=== PATIENT | female | born 1965 | race Two or more races ===

== ENCOUNTER 2019-04-05 13:01 | Emergency (ER) | payer MEDICAID ==
[~2019-04-05] VITALS: Ht 165.1 cm; Wt 86.2 kg
[~2019-04-05 13:01] MED LIST: ASPI81CH43 PO; ATOR20TA50 PO; BACL10TA PO; BUSP10TA90 PO; CLOP75TA28 PO; GABA100C9 PO; HYDR-4683 PO; MET25T PO; OXYB15TA12 PO; PANT40T PO; RISP0.5T12 PO; SERT-135 PO; TRAZ150T79 PO
[2019-04-05] MEDS ORDERED: LORazepam 0.5 MG TAB PO ONE (13:30)
[2019-04-05] MEDS ORDERED: ASPirin 81 mg TAB PO ONE (13:30)
[2019-04-05 13:40] LABS: Basophils # (auto) 0 uL; Basophils % (auto) 0.2 % (0.0-2.0); Eosinophils # (auto) 0.1 uL; Eosinophils % (auto) 1.2 % (0.0-7.0); Hematocrit 41.4 % (36.0-46.0); Lymphocytes # (auto) 1.9 uL; Lymphocytes % (auto) 24.5 % (10.0-50.0); Mean Corpuscular Hemoglobin 31.7 pg (28.0-32.0); Mean Corpuscular Hgb Conc. 33.8 g/dL (32.0-36.0); Mean Corpuscular Volume 93.7 fL (80.0-100.0); Monocytes # (auto) 0.4 uL; Monocytes % (auto) 4.5 % (0.0-12.0); Neutrophils # (auto) 5.5 uL; Neutrophils % (auto) 69.6 % (37.0-80.0); Nucleated Red Blood Cells % 0.1 %; Platelet Count (auto) 177 10^3/uL (140-450); Red Blood Cells 4.41 10^6/uL (4.0-5.20); Red Cell Distribution Width 13.7 % (11.8-14.3); White Blood Cell 7.9 10^3/uL (4.4-10.8)
[2019-04-05 14:04] VITALS: BP 99/62
[2019-04-05 14:06] LABS: Alanine Aminotransferase 52 U/L (13-56); Albumin 3.7 g/dL (3.4-5.0); Anion Gap 7 (5-15); Aspartate Aminotransferase 43 U/L (15-37); Blood Urea Nitrogen 13 mg/dL (7-18); Calcium 8.7 mg/dL (8.5-10.1); Carbon Dioxide 25 mmol/L (21-32); Chloride 109 mmol/L (98-107); Glucose 135 mg/dL (74-106); Potassium 3.9 mmol/L (3.5-5.1); Sodium 141 mmol/L (136-145)
[2019-04-05 14:10] LABS: Alkaline Phosphatase 189 U/L (45-117); BUN/Creatinine Ratio 15.1; Bilirubin, Total 0.5 mg/dL (0.2-1.0); GFR African American 88 mL/min; GFR Non-African American 73 mL/min; Total Protein 7.3 g/dL (6.4-8.2)
[2019-04-05] MEDS ORDERED: KETOROLAC TROMETH 60MG/2ML VIAL IM ONE (14:15)
[2019-04-05] MEDS ORDERED: KETOROLAC TROMETH 15 mg/ml 1ML VL IV ONE (14:15)
== END 2019-04-05 17:19 | disposition home or self-care (01) ==
LOC: ER 13:01
DX: F41.9 Anxiety disorder, unspecified (principal); I11.0 Hypertensive heart disease with heart failure; I50.9 Heart failure, unspecified; I25.2 Old myocardial infarction; F12.10 Cannabis abuse, uncomplicated; Z98.51 Tubal ligation status; Z90.710 Acquired absence of both cervix and uterus; Z98.61 Coronary angioplasty status; Z79.899 Other long term (current) drug therapy
CPT/HCPCS: 36415; 71046; 80053; 84443; 84484; 85025; 93005; 96374; 99284; J1885

== ENCOUNTER 2019-05-02 21:17 | Emergency (ER) | payer MEDICAID ==
[~2019-05-02] VITALS: Ht 165.1 cm; Wt 92.1 kg
[~2019-05-02 21:17] MED LIST changes: -HYDR-4683 PO; +HYDR-4833 PO; -SERT-135 PO; +SERT100T PO
[2019-05-02 22:21] LABS: Urine Bacteria MOD /hpf (None Seen); Urine Blood 3+ /uL (Negative); Urine Mucus FEW (None Seen); Urine Specific Gravity 1.027 (1.001-1.035); Urine WBC 892 /hpf (0 - 5); Urine WBC Clumps PRESENT /hpf (None Seen)
[2019-05-02 22:52] LABS: Basophils # (auto) 0 uL; Basophils % (auto) 0.3 % (0.0-2.0); Eosinophils # (auto) 0.1 uL; Hematocrit 40.9 % (36.0-46.0); Lymphocytes # (auto) 1.4 uL; Lymphocytes % (auto) 14.3 % (10.0-50.0); Mean Corpuscular Hemoglobin 32.1 pg (28.0-32.0); Mean Corpuscular Hgb Conc. 34.2 g/dL (32.0-36.0); Mean Corpuscular Volume 94.1 fL (80.0-100.0); Monocytes # (auto) 0.4 uL; Monocytes % (auto) 4.1 % (0.0-12.0); Neutrophils # (auto) 8.1 uL; Neutrophils % (auto) 80.3 % (37.0-80.0); Platelet Count (auto) 172 10^3/uL (140-450); Red Blood Cells 4.35 10^6/uL (4.0-5.20); Red Cell Distribution Width 13.3 % (11.8-14.3); White Blood Cell 10.1 10^3/uL (4.4-10.8)
[2019-05-02 23:03] LABS: INR 0.97 (0.9-1.15); Partial Thromboplastin Time 25.6 sec (23.64-32.05)
[2019-05-03 01:12] VITALS: BP 103/71
[2019-05-03] MEDS ORDERED: HYDROcodone-ACET 5/325MG TAB PO ONE (02:15)
== END 2019-05-03 02:14 | disposition home or self-care (01) ==
LOC: ER 21:17
DX: N93.9 Abnormal uterine and vaginal bleeding, unspecified (principal); N39.0 Urinary tract infection, site not specified; G89.4 Chronic pain syndrome; M54.9 Dorsalgia, unspecified; I11.0 Hypertensive heart disease with heart failure; I50.9 Heart failure, unspecified; I25.2 Old myocardial infarction; Z98.51 Tubal ligation status; Z90.710 Acquired absence of both cervix and uterus; Z98.61 Coronary angioplasty status; Z79.899 Other long term (current) drug therapy; Z79.01 Long term (current) use of anticoagulants
CPT/HCPCS: 36415; 81001; 85025; 85610; 85730; 86850; 86900; 86901

== ENCOUNTER 2019-10-27 18:32 | Emergency (ER) | payer MEDICAID ==
[~2019-10-27] VITALS: Ht 165.1 cm; Wt 92.5 kg
[2019-10-27 19:41] VITALS: BP 122/98
[2019-10-27] MEDS ORDERED: LORazepam 0.5 MG TAB PO ONE (19:45)
== END 2019-10-27 19:50 | disposition home or self-care (01) ==
LOC: ER 18:32
DX: F41.9 Anxiety disorder, unspecified (principal); F31.9 Bipolar disorder, unspecified; I25.2 Old myocardial infarction; E78.5 Hyperlipidemia, unspecified; I11.0 Hypertensive heart disease with heart failure; I50.9 Heart failure, unspecified; Z76.0 Encounter for issue of repeat prescription; Z98.51 Tubal ligation status; Z90.710 Acquired absence of both cervix and uterus; Z98.61 Coronary angioplasty status

== ENCOUNTER 2020-01-06 17:01 | Emergency (ER) | payer MEDICAID ==
[2020-01-06 17:28] VITALS: BP 118/79
[2020-01-06] MEDS ORDERED: HYDROcodone-ACET 7.5/325MG TAB PO ONE (17:45)
== END 2020-01-06 19:29 | disposition home or self-care (01) ==
LOC: ER 17:01
DX: M13.812 Other specified arthritis, left shoulder (principal); I11.0 Hypertensive heart disease with heart failure; I50.9 Heart failure, unspecified; I25.2 Old myocardial infarction
CPT/HCPCS: 71045; 73030

== ENCOUNTER 2020-03-22 20:42 | Inpatient (IN) | payer MEDICAID ==
[~2020-03-22] VITALS: Ht 165.1 cm; Wt 95.3 kg
[2020-03-22] MEDS ORDERED: ASPirin 81 mg TAB PO ONE (21:00)
[2020-03-22] MEDS ORDERED: MORPHINE SULFATE 4 MG/ML SYR/VIAL IV ONE (21:00)
[2020-03-22] MEDS ORDERED: ONDANSETRON HCL 4 MG/2 ML VIAL IV ONE (21:00)
[2020-03-22 22:06] LABS: Basophils # (auto) 0.1 10 ^3/uL (0-0.2); Basophils % (auto) 1.2 % (0.0-2.0); Eosinophils # (auto) 0 10 ^3/uL (0-0.8); Eosinophils % (auto) 0.6 % (0.0-7.0); Hematocrit 44.5 % (36.0-46.0); Hemoglobin 14.9 g/dL (12.2-16.2); Lymphocytes # (auto) 1.5 10 ^3/uL (0.4-5.4); Lymphocytes % (auto) 19.1 % (10.0-50.0); Mean Corpuscular Hemoglobin 31.2 pg (28.0-32.0); Mean Corpuscular Hgb Conc. 33.5 g/dL (32.0-36.0); Monocytes # (auto) 0.5 10 ^3/uL (0-1.3); Monocytes % (auto) 6.1 % (0.0-12.0); Neutrophils # (auto) 5.7 10 ^3/uL (1.6-8.6); Nucleated Red Blood Cells % 0.1 %; Platelet Count (auto) 238 10^3/uL (140-450); Red Blood Cells 4.78 10^6/uL (4.0-5.20); Red Cell Distribution Width 13.5 % (11.8-14.3); White Blood Cell 7.8 10^3/uL (4.4-10.8)
[2020-03-22 22:22] LABS: Alanine Aminotransferase 31 U/L (13-56); Albumin 3.9 g/dL (3.4-5.0); Anion Gap 7 (5-15); Aspartate Aminotransferase 25 U/L (15-37); BUN/Creatinine Ratio 16.4; Blood Urea Nitrogen 11 mg/dL (7-18); Calcium 8.9 mg/dL (8.5-10.1); Carbon Dioxide 24 mmol/L (21-32); Chloride 109 mmol/L (98-107); GFR African American 118 mL/min; GFR Non-African American 97 mL/min; Glucose 102 mg/dL (74-106); Magnesium 1.9 mg/dL (1.6-2.6); Sodium 140 mmol/L (136-145)
[2020-03-22 22:27] LABS: Alkaline Phosphatase 153 U/L (45-117); Bilirubin, Total 0.5 mg/dL (0.2-1.0); Total Protein 7.6 g/dL (6.4-8.2)
[2020-03-22] MEDS ORDERED: NITROGLYCERIN 0.4 MG SL TAB SL PRN (23:00)
[2020-03-22] MEDS ORDERED: ONDANSETRON HCL 4 MG/2 ML VIAL IV PRN (23:00)
[2020-03-22] MEDS ORDERED: TEMAZEPAM 15 MG CAP PO PRN (23:00)
[2020-03-22] MEDS ORDERED: MORPHINE SULF INJ 2 MG/ML SYRINGE 1ML IV PRN (23:00)
[2020-03-23] VITALS (7 sets, daily range): BP systolic 97–110; BP diastolic 57–72
--- NOTE | 2020-03-23 00:38 | NUR ---
Telemetry admit from [facility] admitted to Telemetry unit after SBAR received. Patient oriented to Neymar Partida primary RN, unit, room, bed, and unit policies regarding patient care and visiting hours. Patient now on continuous telemetry monitoring, tele box # [id number] and telemetry reading on arrival to unit is sinus rhythm. Patient placed on bedside oxygen, weighed by bedscale and encouraged to call if they need something. All questions and concerns addressed, patient verbalized understanding.
--- NOTE | 2020-03-23 05:00 | NUR ---
Patient complaints of back and neck pain at 07/17, paged hospitalist to request for pain medication. Awaiting for call back.
[2020-03-23 06:02] LABS: Basophils # (auto) 0 10 ^3/uL (0-0.2); Basophils % (auto) 0.4 % (0.0-2.0); Eosinophils # (auto) 0.1 10 ^3/uL (0-0.8); Eosinophils % (auto) 1.5 % (0.0-7.0); Hematocrit 41.6 % (36.0-46.0); Hemoglobin 13.8 g/dL (12.2-16.2); Lymphocytes # (auto) 1.9 10 ^3/uL (0.4-5.4); Lymphocytes % (auto) 33.1 % (10.0-50.0); Mean Corpuscular Hemoglobin 31.4 pg (28.0-32.0); Mean Corpuscular Hgb Conc. 33.3 g/dL (32.0-36.0); Mean Corpuscular Volume 94.3 fL (80.0-100.0); Monocytes # (auto) 0.5 10 ^3/uL (0-1.3); Monocytes % (auto) 8.9 % (0.0-12.0); Neutrophils # (auto) 3.2 10 ^3/uL (1.6-8.6); Neutrophils % (auto) 56.1 % (37.0-80.0); Platelet Count (auto) 215 10^3/uL (140-450); Red Blood Cells 4.41 10^6/uL (4.0-5.20); Red Cell Distribution Width 13.6 % (11.8-14.3); White Blood Cell 5.7 10^3/uL (4.4-10.8)
[2020-03-23 06:16] LABS: Anion Gap 5 (5-15); Blood Urea Nitrogen 14 mg/dL (7-18); Calcium 8.7 mg/dL (8.5-10.1); Carbon Dioxide 28 mmol/L (21-32); Chloride 109 mmol/L (98-107); Glucose 95 mg/dL (74-106); Sodium 142 mmol/L (136-145)
[2020-03-23 06:23] LABS: BUN/Creatinine Ratio 20.6; GFR African American 116 mL/min; GFR Non-African American 95 mL/min
--- NOTE | 2020-03-23 06:28 | NUR ---
Hospitalist called back and ordered Tylenol 650mg PO x1, carried out and followed through.
[2020-03-23] MEDS ORDERED: ACETAMINOPHEN 325 MG TAB PO ONE (06:30)
--- NOTE | 2020-03-23 08:00 | NUR ---
Received pt resting in bed, call light with in reach, pt reports headache /, pt was given pain medication by night club manager, pt offered and given a cold towel, will continue to monitor pt.
[2020-03-23] MEDS: METOPROLOL TARTRATE 25 MG TAB PO SCH ×2 (09:44→22:00)
[2020-03-23] MEDS: CLOPIDOGREL BISULFATE 75 MG TAB PO SCH (09:45)
[2020-03-23] MEDS: PANTOPRAZOLE 40 MG TAB PO SCH (09:46)
[2020-03-23] MEDS ORDERED: ASPirin 81 mg TAB PO SCH (10:00)
[2020-03-23] MEDS ORDERED: FAMOTIDINE 20 MG TAB PO SCH (10:00)
--- NOTE | 2020-03-23 12:20 | NUR ---
Paged Dr. Denton regarding pt reporting headache 05/17 and Tylenol is not taking care of the headache, awaiting for call back to request an alternative pain medication.
[2020-03-23] MEDS: ACETAMINOPHEN 325 MG TAB PO PRN (12:35)
--- NOTE | 2020-03-23 12:36 | NUR ---
Pt reports pain, headache 04/16, pt informed that Tylenol is order for her and that Dr. Denton was page to get a new pain medication, awaiting call back. Pt requested for Tylenol to be given now.
--- NOTE | 2020-03-23 13:01 | NUR ---
Paged Dr. Denton regarding pt reporting headache 05/17 and that Tylenol is not taking care of the headache, awaiting for call back to request an alternative pain medication. Pt informed and a cold towel given.
--- NOTE | 2020-03-23 13:07 | NUR ---
Received call back from Dr. Denton, doctor informed that pt is reporting headache 05/17, pt received Tylenol, pt is reporting for Tylenol not working, received orders for Termo 5/325 mg Q6hr prn.
[2020-03-23] MEDS ORDERED: HYDROcodone-ACET 5/325MG TAB PO PRN (13:15)
--- NOTE | 2020-03-23 15:10 | NUR ---
Called and spoke to Dr. Denton regarding restarting pt's home medications as per pt's request, doctor informed that pt is asking for anxiety medication, and that pt's Metoprolol was held at 1000 as schedule due to pt's low HR of 56.
[2020-03-23] MEDS: SERTRALINE HCL 50 MG TAB PO SCH (16:45)
[2020-03-23] MEDS: risperiDONE 1 MG TAB PO SCH (16:45)
[2020-03-23 19:09] LABS: Alcohol, Urine < 3.0 mg/dL (0-10); Amphetamine Screen, Urine NEGATIVE (NEGATIVE); Barbiturate Scree,Urine NEGATIVE (NEGATIVE); Benzodiazephine Screen, Urine POSITIVE (NEGATIVE); Cannabinoid Screen, Urine POSITIVE (NEGATIVE); Cocaine Screen, Urine NEGATIVE (NEGATIVE); Opiate Scree,Urine POSITIVE (NEGATIVE); Phencyclidine Screen, Urine NEGATIVE (NEGATIVE)
--- NOTE | 2020-03-23 19:20 | NUR ---
Opening Shift Note Received report from Hien BONNER. Assumed care of patient, awake and alert. No S/S of distress/SOB or pain. Instructed on POC and to call for assist PRN, will continue to monitor for changes Q1hr and PRN.
[2020-03-23] MEDS: HYDROcodone-ACET 5/325MG TAB PO PRN (20:51)
--- NOTE | 2020-03-23 20:51 | NUR ---
Complains of lower back pain t 6, Denton PO given, continue care.
[2020-03-23] MEDS ORDERED: ATORVASTATIN 20 MG TAB PO SCH (22:00)
[2020-03-23] MEDS: ATORVASTATIN 20 MG TAB PO SCH (22:13)
[2020-03-23] MEDS: traZODone HCL 50 MG TAB PO SCH (22:13)
[2020-03-23] MEDS: busPIRone HCL 10 MG TAB PO SCH (22:14)
--- NOTE | 2020-03-23 22:15 | NUR ---
Pain level at this time is 3/10, continue care.
[2020-03-24 05:00] VITALS: BP 134/81
[2020-03-24] MEDS: busPIRone HCL 10 MG TAB PO SCH ×3 (06:18→21:20)
[2020-03-24] MEDS: HYDROcodone-ACET 5/325MG TAB PO PRN ×3 (06:27→21:21)
--- NOTE | 2020-03-24 07:35 | NUR ---
Opening Note Received report from manager shift RN. Patient is awake, alert and oriented x4. No signs or symptoms of distress noted at this time. Patient denies pain at this time. Patient is on room air, respirations even and unlabored. Reviewed plan of care with patient, patient verbalized understanding. Bed in low and locked position, call light within reach. Will continue to monitor Q1 hour and PRN.
[2020-03-24 08:15] VITALS: BP 108/52
[2020-03-24] MEDS: SERTRALINE HCL 50 MG TAB PO SCH (09:42)
[2020-03-24] MEDS: PANTOPRAZOLE 40 MG TAB PO SCH (09:42)
[2020-03-24] MEDS: CLOPIDOGREL BISULFATE 75 MG TAB PO SCH (09:42)
[2020-03-24] MEDS: ASPirin 81 mg TAB PO SCH (09:42)
[2020-03-24] MEDS: METOPROLOL TARTRATE 25 MG TAB PO SCH ×2 (09:43→21:21)
--- NOTE | 2020-03-24 11:50 | NUR ---
IV Insertion IV access obtained, via clean sterile technique by inserting 22 gauge catheter in left hand after one attempt. IV secured properly. No trauma to site. Patient tolerated procedure well. Will continue to monitor Q1 hour and PRN.
--- NOTE | 2020-03-24 11:55 | NUR ---
IV Removal IV removed with clean sterile technique from right AC, with catheter fully intact. Pressure dressing applied to site. Patient tolerated well. Will continue to monitor.
[2020-03-24 13:16] VITALS: BP 105/62
--- NOTE | 2020-03-24 13:20 | NUR ---
EKG done and placed in patients chart
--- NOTE | 2020-03-24 13:40 | NUR ---
Pain Patient complains of pain 10/10 to lower back and is requesting NORCO. Will medicate per orders. Patient provided with heat packs for comfort. Will continue to monitor Q1 hour and PRN.
--- NOTE | 2020-03-24 14:10 | NUR ---
Pain reassessment Patient states pain in back is now 2/10. Patient resting comfortably in bed. No signs or symptoms of distress noted at this time. Will continue to monitor Q1 hour and PRN.
[2020-03-24 17:08] VITALS: BP 109/63
[2020-03-24] MEDS: risperiDONE 1 MG TAB PO SCH (17:36)
--- NOTE | 2020-03-24 19:03 | NUR ---
Closing Note Report given to varnishing machine operator RN. No signs or symptoms of distress noted at this time.
--- NOTE | 2020-03-24 19:28 | NUR ---
Opening Shift Note Assumed care of patient, awake and alert. No S/S of distress/SOB or chest pain reported at this time, currently on room air, lungs clear, IV patent and benign to left hand. Instructed on POC, including Possible stress test and NPO status after midnight, and to call for assist PRN, pt verbalized understanding, call light within reach, will continue to monitor for changes Q1hr and PRN.
[2020-03-24 20:00] VITALS: BP 104/70
[2020-03-24] MEDS: ATORVASTATIN 20 MG TAB PO SCH (21:20)
[2020-03-24] MEDS: traZODone HCL 50 MG TAB PO SCH (21:21)
[2020-03-24 22:00] VITALS: BP 104/70
[2020-03-25] MEDS: HYDROcodone-ACET 5/325MG TAB PO PRN ×2 (04:06→12:37)
[2020-03-25 05:00] VITALS: BP 122/80
--- NOTE | 2020-03-25 05:30 | NUR ---
IV INSERTION TO RIGHT HAND#20, FLUSHING WELL. PT TOLERATED PROCEDURE WELL. BED IN LOWEST POSITION, CALL LIGHT WITHIN REACH. WILL CONTINUE TO MONITOR.
[2020-03-25] MEDS: busPIRone HCL 10 MG TAB PO SCH ×2 (05:55→14:20)
[2020-03-25] MEDS ORDERED: ADENOSINE 80 MG in GIVE UN-DILUTED 0 ML IV ONE (08:00)
[2020-03-25] MEDS: ACETAMINOPHEN 325 MG TAB PO PRN (08:57)
[2020-03-25 09:00] VITALS: BP 124/91
[2020-03-25] MEDS: METOPROLOL TARTRATE 25 MG TAB PO SCH (10:00)
[2020-03-25] MEDS: CLOPIDOGREL BISULFATE 75 MG TAB PO SCH (12:24)
[2020-03-25] MEDS: PANTOPRAZOLE 40 MG TAB PO SCH (12:24)
[2020-03-25] MEDS: SERTRALINE HCL 50 MG TAB PO SCH (12:24)
[2020-03-25] MEDS: ASPirin 81 mg TAB PO SCH (12:24)
[2020-03-25 13:00] VITALS: BP 106/79
--- NOTE | 2020-03-25 14:20 | NUR ---
SPOKE TO GUADALUPE REGARDING STRESS TEST RESULT. PER LOTTERY CLERK RESULTS NOT YET AVAILABLE.
--- NOTE | 2020-03-25 16:36 | NUR ---
PAGED JASWANT BUTCHER FOR CARDIOLITE RESULTS.
[2020-03-25 17:00] VITALS: BP 113/86
[2020-03-25 17:31] VITALS: BP 113/86
--- NOTE | 2020-03-25 17:55 | NUR ---
CARDIOLOGY CLEARED PT. DISCHARGE INSTRUCTIONS PROVIDED TO PT. PT VERBALIZED UNDERSTANDING FOR CONTINUATION OF HOME MEDICATIONS AND FOLLOW UP APPOINTMENT. EDUCATIONAL MATERIAL PROVIDED TO PT. ALL QUESTIONS AND CONCERNS ADDRESSED. IV CATHETER DC'D LEFT HAND#22, RIGHT HAND#20. TELE BOX REMOVED, AND RETURNED TO TELE DEPT. PT SAFELY ESCORTED OUT OF UNIT.
== END 2020-03-25 18:00 | disposition home or self-care (01) | DRG 198 ==
LOC: ER 20:45 → TELE 20:46 → TELE-WESTW 23:35
PROVIDERS: ADMIT Nurse Practitioner; ATTEND Internal Medicine
DX: R07.89 Other chest pain (principal); I25.110 Atherosclerotic heart disease of native coronary artery with unstable angina pectoris; I50.33 Acute on chronic diastolic (congestive) heart failure; I11.0 Hypertensive heart disease with heart failure; E66.9 Obesity, unspecified; E78.5 Hyperlipidemia, unspecified; F41.9 Anxiety disorder, unspecified; F31.9 Bipolar disorder, unspecified; G89.29 Other chronic pain; F12.90 Cannabis use, unspecified, uncomplicated; M54.5 Low back pain; Z72.0 Tobacco use; I25.2 Old myocardial infarction; Z79.891 Long term (current) use of opiate analgesic; Z90.710 Acquired absence of both cervix and uterus; Z83.3 Family history of diabetes mellitus; Z68.35 Body mass index [BMI] 35.0-35.9, adult; Z95.5 Presence of coronary angioplasty implant and graft; Z98.51 Tubal ligation status; Z71.6 Tobacco abuse counseling; Z83.79 Family history of other diseases of the digestive system; Z82.49 Family history of ischemic heart disease and other diseases of the circulatory system
CPT/HCPCS: 36415; 71045; 78452; 80048; 80053; 80061; 80307; 83735; 83880; 84484; 85025; 85379; 93005; 93017; 93306; 96374; 96375; G0378; J0153; J2405

== ENCOUNTER → 2020-11-11 | Outpatient (CLI) | payer MEDICAID ==
[~2020-11-11] VITALS: Ht 165.1 cm; Wt 92.5 kg
[~2020-11-11] MED LIST changes: +ADENOSINE 78 MG in GIVE UN-DILUTED 0 ML IV ONE; +ADENOSINE 90 MG/30 ML INJ IV ONE; -RISP0.5T12 PO; +RISP0.5T17 PO; -TRAZ150T79 PO; +TRAZ1TAB12 PO
== END | disposition home or self-care (01) ==
LOC: Rad HDHVI 13:28
PROVIDERS: ATTEND Internal Medicine
DX: I25.10 Atherosclerotic heart disease of native coronary artery without angina pectoris (principal); I10 Essential (primary) hypertension; E78.00 Pure hypercholesterolemia, unspecified; R07.89 Other chest pain; I25.2 Old myocardial infarction; Z82.49 Family history of ischemic heart disease and other diseases of the circulatory system
CPT/HCPCS: 78452; 93005; 96374; 96375; A9500; J0153

== ENCOUNTER 2021-05-26 08:10 | Emergency (ER) | payer MEDICAID ==
[~2021-05-26] VITALS: Ht 165.1 cm; Wt 89.8 kg
[~2021-05-26 08:10] MED LIST changes: -ADENOSINE 78 MG in GIVE UN-DILUTED 0 ML IV ONE; -ADENOSINE 90 MG/30 ML INJ IV ONE
[2021-05-26] MEDS ORDERED: MORPHINE SULFATE 4 MG/ML SYR/VIAL IV ONE (08:15)
[2021-05-26] MEDS ORDERED: ASPirin 81 mg TAB PO ONE (08:15)
[2021-05-26] MEDS ORDERED: ONDANSETRON HCL 4 MG/2 ML VIAL IV ONE (08:15)
[2021-05-26 09:08] LABS: Basophils # (auto) 0.1 10 ^3/uL (0-0.2); Eosinophils # (auto) 0.1 10 ^3/uL (0-0.8); Eosinophils % (auto) 0.6 % (0.0-7.0); Hematocrit 45.4 % (36.0-46.0); Hemoglobin 15.5 g/dL (12.2-16.2); Lymphocytes # (auto) 1.9 10 ^3/uL (0.4-5.4); Lymphocytes % (auto) 13.2 % (10.0-50.0); Mean Corpuscular Hemoglobin 31.9 pg (28.0-32.0); Mean Corpuscular Hgb Conc. 34.1 g/dL (32.0-36.0); Mean Corpuscular Volume 93.4 fL (80.0-100.0); Monocytes # (auto) 0.4 10 ^3/uL (0-1.3); Monocytes % (auto) 2.8 % (0.0-12.0); Neutrophils # (auto) 11.8 10 ^3/uL (1.6-8.6); Neutrophils % (auto) 82.4 % (37.0-80.0); Nucleated Red Blood Cells % 0.1 %; Red Blood Cells 4.86 10^6/uL (4.0-5.20); Red Cell Distribution Width 13.4 % (11.8-14.3); White Blood Cell 14.3 10^3/uL (4.4-10.8)
[2021-05-26 09:31] LABS: Albumin 4.2 g/dL (3.4-5.0); Anion Gap 10 (5-15); Blood Urea Nitrogen 13 mg/dL (7-18); Calcium 9.4 mg/dL (8.5-10.1); Carbon Dioxide 21 mmol/L (21-32); Chloride 109 mmol/L (98-107); Glucose 168 mg/dL (74-106); Magnesium 1.8 mg/dL (1.6-2.6); Potassium 3.5 mmol/L (3.5-5.1); Sodium 140 mmol/L (136-145)
[2021-05-26 09:37] LABS: Alanine Aminotransferase 28 U/L (13-56); Alkaline Phosphatase 185 U/L (45-117); Aspartate Aminotransferase 23 U/L (15-37); BUN/Creatinine Ratio 15.1; Bilirubin, Total 0.8 mg/dL (0.2-1.0); GFR African American 88 mL/min; GFR Non-African American 73 mL/min; Total Protein 8.4 g/dL (6.4-8.2)
[2021-05-26 09:46] VITALS: BP 130/99
== END 2021-05-26 14:29 | disposition home or self-care (01) ==
LOC: ER 08:10 → EDBD 08:10 → ER 14:29
DX: R07.89 Other chest pain (principal); D72.829 Elevated white blood cell count, unspecified; I11.0 Hypertensive heart disease with heart failure; I50.9 Heart failure, unspecified; E78.5 Hyperlipidemia, unspecified; I25.2 Old myocardial infarction; Z98.51 Tubal ligation status; Z20.822 Contact with and (suspected) exposure to COVID-19; Z90.710 Acquired absence of both cervix and uterus
CPT/HCPCS: 36415; 71045; 80053; 83735; 83880; 84484; 85025; 85379; 87426; 93005; 96374; 96375; 99285; J2270; J2405

== ENCOUNTER → 2022-03-02 | Outpatient (CLI) | payer MEDICAID ==
[~2022-03-02] VITALS: Ht 165.1 cm; Wt 89.4 kg
[~2022-03-02] MED LIST changes: +ADENOSINE 75 MG in GIVE UN-DILUTED 0 ML IV ONE; +ADENOSINE 90 MG/30 ML INJ IV ONE
== END | disposition home or self-care (01) ==
LOC: Rad HDHVI 13:03
PROVIDERS: ATTEND Internal Medicine
DX: I25.118 Atherosclerotic heart disease of native coronary artery with other forms of angina pectoris (principal); I25.2 Old myocardial infarction; E78.5 Hyperlipidemia, unspecified; I10 Essential (primary) hypertension; R07.9 Chest pain, unspecified; R00.2 Palpitations; R06.02 Shortness of breath; Z01.810 Encounter for preprocedural cardiovascular examination; Z82.49 Family history of ischemic heart disease and other diseases of the circulatory system
CPT/HCPCS: 78452; 93005; 96374; 96375; A9500; J0153

== ENCOUNTER 2022-04-06 10:40 | Inpatient (IN) | payer MEDICAID ==
[~2022-04-06] VITALS: Ht 165.1 cm; Wt 89.0 kg
[~2022-04-06 10:40] MED LIST changes: -ADENOSINE 75 MG in GIVE UN-DILUTED 0 ML IV ONE; -ADENOSINE 90 MG/30 ML INJ IV ONE
[2022-04-06 11:24] LABS: Basophils # (auto) 0.1 10 ^3/uL (0-0.2); Basophils % (auto) 0.9 % (0.0-2.0); Eosinophils # (auto) 0.1 10 ^3/uL (0-0.8); Eosinophils % (auto) 0.7 % (0.0-7.0); Hematocrit 46.3 % (36.0-46.0); Hemoglobin 15.3 g/dL (12.2-16.2); Lymphocytes # (auto) 3.5 10 ^3/uL (0.4-5.4); Lymphocytes % (auto) 29.8 % (10.0-50.0); Mean Corpuscular Hemoglobin 31.1 pg (28.0-32.0); Mean Corpuscular Hgb Conc. 33.1 g/dL (32.0-36.0); Mean Corpuscular Volume 93.8 fL (80.0-100.0); Monocytes # (auto) 0.3 10 ^3/uL (0-1.3); Monocytes % (auto) 2.9 % (0.0-12.0); Neutrophils # (auto) 7.6 10 ^3/uL (1.6-8.6); Neutrophils % (auto) 65.7 % (37.0-80.0); Nucleated Red Blood Cells % 0.1 %; Red Blood Cells 4.94 10^6/uL (4.0-5.20); Red Cell Distribution Width 13.8 % (11.8-14.3); White Blood Cell 11.6 10^3/uL (4.4-10.8)
[2022-04-06 11:39] LABS: Albumin 4.4 g/dL (3.4-5.0); Calcium 9.6 mg/dL (8.5-10.1); Magnesium 1.9 mg/dL (1.6-2.6); Potassium 3.5 mmol/L (3.5-5.1)
[2022-04-06 11:44] LABS: BUN/Creatinine Ratio 13.1; Bilirubin, Total 0.9 mg/dL (0.2-1.0); Total Protein 8.4 g/dL (6.4-8.2)
[2022-04-06 12:03] LABS: INR 1.01 (0.9-1.15); Partial Thromboplastin Time 22.3 sec (23.6-33.0)
[2022-04-06] MEDS ORDERED: cloNIDine HCL 0.1 MG TAB PO ONE (12:45)
[2022-04-06] MEDS ORDERED: LORazepam 2MG/ML-1ML VIAL IV ONE (12:45)
[2022-04-06] MEDS ORDERED: SODIUM CHLORIDE 0.9% 1,000 ML IV ONE (12:45)
[2022-04-06] MEDS ORDERED: CEPH-509 PO (14:38)
[2022-04-06] MEDS ORDERED: LABETALOL HCL 5 MG/ML 4ML SYRINGE IV ONE (14:45)
[2022-04-06 14:56] LABS: Urine Bacteria NONE SEEN /hpf (None Seen); Urine Blood Negative /uL (Negative); Urine Mucus FEW (None Seen); Urine Specific Gravity 1.027 (1.001-1.035); Urine WBC <1 /hpf (0 - 5)
[2022-04-06] MEDS ORDERED: ONDANSETRON HCL 4 MG/2 ML VIAL IV PRN (18:15)
[2022-04-06] MEDS ORDERED: MORPHINE SULFATE INJ 2 MG/ml SYRG IV PRN (18:15)
[2022-04-06] MEDS ORDERED: hydrALAZINE HCL 20 MG/ML VL IV ONE (18:15)
[2022-04-06] MEDS ORDERED: NITROGLYCERIN 0.4 MG SL TAB SL PRN (18:15)
[2022-04-06] MEDS ORDERED: hydrALAZINE HCL 20 MG/ML VL IV PRN (18:15)
[2022-04-06] MEDS ORDERED: ACETAMINOPHEN 325 MG TAB PO PRN (18:15)
[2022-04-06 20:11] LABS: Free T3 3.39 pg/mL (2.3-4.2); Free T4 (Free Thyroxine) 1.3 ng/dL (0.89-1.76)
[2022-04-06] MEDS: HYDROcodone-ACET 5/325MG TAB PO PRN ×2 (20:29→23:29)
[2022-04-06] MEDS: OXYBUTYNIN CHLORIDE 5 MG PO SCH (22:00)
[2022-04-06] MEDS ORDERED: ATORVASTATIN 20 MG TAB PO SCH (22:00)
[2022-04-06] MEDS ORDERED: traZODone HCL 50 MG TAB PO SCH (22:00)
[2022-04-06] MEDS: busPIRone HCL 10 MG TAB PO SCH (22:25)
[2022-04-06 23:16] VITALS: BP 102/74
[2022-04-06] MEDS: METOPROLOL TARTRATE 25 MG TAB PO SCH (23:30)
[2022-04-06] MEDS: BACLOFEN 10 MG TAB PO PRN (23:32)
[2022-04-07] MEDS: METOPROLOL TARTRATE 25 MG TAB PO SCH ×3 (00:30→09:07)
[2022-04-07 05:00] VITALS: BP 105/72
[2022-04-07 06:32] LABS: Basophils # (auto) 0 10 ^3/uL (0-0.2); Basophils % (auto) 0.4 % (0.0-2.0); Eosinophils # (auto) 0 10 ^3/uL (0-0.8); Eosinophils % (auto) 0.3 % (0.0-7.0); Hematocrit 38.8 % (36.0-46.0); Hemoglobin 12.8 g/dL (12.2-16.2); Lymphocytes % (auto) 28.6 % (10.0-50.0); Mean Corpuscular Hemoglobin 30.4 pg (28.0-32.0); Monocytes # (auto) 0.6 10 ^3/uL (0-1.3); Monocytes % (auto) 5.9 % (0.0-12.0); Neutrophils # (auto) 6.9 10 ^3/uL (1.6-8.6); Neutrophils % (auto) 64.8 % (37.0-80.0); Nucleated Red Blood Cells % 0.1 %; Red Blood Cells 4.22 10^6/uL (4.0-5.20); Red Cell Distribution Width 13.4 % (11.8-14.3); White Blood Cell 10.6 10^3/uL (4.4-10.8)
[2022-04-07 06:42] LABS: Albumin 3.4 g/dL (3.4-5.0); Calcium 8.6 mg/dL (8.5-10.1); Potassium 3.3 mmol/L (3.5-5.1)
[2022-04-07 06:44] LABS: BUN/Creatinine Ratio 17.9
[2022-04-07 06:57] LABS: Bilirubin, Total 0.8 mg/dL (0.2-1.0); Total Protein 6.4 g/dL (6.4-8.2)
[2022-04-07] MEDS: busPIRone HCL 10 MG TAB PO SCH ×2 (08:40→15:39)
[2022-04-07 09:00] VITALS: BP 112/73
[2022-04-07] MEDS: OXYBUTYNIN CHLORIDE 5 MG PO SCH (09:08)
[2022-04-07] MEDS ORDERED: ASPirin 81 mg TAB PO SCH (10:00)
[2022-04-07] MEDS ORDERED: GABAPENTIN 100 MG CAP PO SCH (10:00)
[2022-04-07] MEDS ORDERED: PANTOPRAZOLE 40 MG TAB PO SCH (10:00)
[2022-04-07] MEDS ORDERED: SERTRALINE HCL 50 MG TAB PO SCH (10:00)
[2022-04-07] MEDS ORDERED: ENOXAPARIN SOD 40 MG/0.4 ML SYRINGE SC SCH (10:00)
[2022-04-07] MEDS ORDERED: CLOPIDOGREL BISULFATE 75 MG TAB PO SCH (10:00)
[2022-04-07] MEDS: HYDROcodone-ACET 5/325MG TAB PO PRN (10:20)
[2022-04-07] MEDS: BACLOFEN 10 MG TAB PO PRN (10:20)
[2022-04-07] MEDS ORDERED: POTASSIUM CHL 20 Meq TABLET PO ONE (12:00)
[2022-04-07 13:00] VITALS: BP 126/84
[2022-04-07 15:28] VITALS: BP 132/74
[2022-04-07] MEDS ORDERED: risperiDONE 1 MG TAB PO SCH (18:00)
== END 2022-04-07 16:00 | disposition home or self-care (01) | DRG 199 ==
LOC: ER 10:40 → TELE 18:03 → TELE-CENTR 22:59
PROVIDERS: ADMIT Internal Medicine; ATTEND Internal Medicine
DX: I16.0 Hypertensive urgency (principal); E87.2 Acidosis; I50.9 Heart failure, unspecified; E66.9 Obesity, unspecified; I25.10 Atherosclerotic heart disease of native coronary artery without angina pectoris; I11.0 Hypertensive heart disease with heart failure; E78.5 Hyperlipidemia, unspecified; E87.6 Hypokalemia; F41.9 Anxiety disorder, unspecified; F51.04 Psychophysiologic insomnia; N39.0 Urinary tract infection, site not specified; F32.A Depression, unspecified; R73.9 Hyperglycemia, unspecified; R94.6 Abnormal results of thyroid function studies; Z20.822 Contact with and (suspected) exposure to COVID-19; Z68.32 Body mass index [BMI] 32.0-32.9, adult; Z82.49 Family history of ischemic heart disease and other diseases of the circulatory system; Z88.8 Allergy status to other drugs, medicaments and biological substances; Z83.3 Family history of diabetes mellitus; Z90.710 Acquired absence of both cervix and uterus; Z98.61 Coronary angioplasty status; Z98.51 Tubal ligation status
CPT/HCPCS: 36415; 71045; 80053; 81001; 82962; 83735; 84439; 84443; 84481; 84484; 85025; 85610; 85730; 93005; 93306; 96361; 96374; 96375; 97163; 99291; G0378; J3490

== ENCOUNTER 2022-06-05 19:36 | Inpatient (IN) | payer MEDICAID ==
[~2022-06-05] VITALS: Ht 165.1 cm; Wt 88.5 kg
[2022-06-05] MEDS ORDERED: cloNIDine HCL 0.1 MG TAB ONE (21:01)
[2022-06-05] MEDS ORDERED: cloNIDine HCL 0.1 MG TAB PO ONE (21:15)
[2022-06-05 22:12] LABS: Basophils # (auto) 0.1 10 ^3/uL (0-0.2); Basophils % (auto) 0.9 % (0.0-2.0); Eosinophils # (auto) 0 10 ^3/uL (0-0.8); Eosinophils % (auto) 0.1 % (0.0-7.0); Hematocrit 47.5 % (36.0-46.0); Hemoglobin 15.7 g/dL (12.2-16.2); Lymphocytes % (auto) 15.4 % (10.0-50.0); Mean Corpuscular Hemoglobin 30.6 pg (28.0-32.0); Mean Corpuscular Volume 92.9 fL (80.0-100.0); Monocytes # (auto) 0.4 10 ^3/uL (0-1.3); Monocytes % (auto) 3.3 % (0.0-12.0); Neutrophils # (auto) 10.4 10 ^3/uL (1.6-8.6); Neutrophils % (auto) 80.3 % (37.0-80.0); Red Blood Cells 5.12 10^6/uL (4.0-5.20); Red Cell Distribution Width 13.7 % (11.8-14.3)
[2022-06-05] MEDS ORDERED: MORPHINE SULFATE INJ 2 MG/ml SYRG IV ONE (22:15)
[2022-06-05] MEDS ORDERED: LABETALOL HCL 5 MG/ML 4ML SYRINGE IV ONE (22:15)
[2022-06-05] MEDS ORDERED: ONDANSETRON HCL 4 MG/2 ML VIAL IV ONE ×2 (22:15)
[2022-06-05 22:32] LABS: Albumin 4.5 g/dL (3.4-5.0); BUN/Creatinine Ratio 18.2; Calcium 9.9 mg/dL (8.5-10.1); Potassium 4.1 mmol/L (3.5-5.1)
[2022-06-05 22:35] LABS: Bilirubin, Total 1.3 mg/dL (0.2-1.0); Total Protein 8.2 g/dL (6.4-8.2)
[2022-06-06] VITALS (13 sets, daily range): BP systolic 92–128; BP diastolic 56–88
[2022-06-06] LABS: Urine Bacteria FEW /hpf (None Seen); Urine Blood Negative /uL (Negative); Urine Hyaline Cast FEW /lpf (0 - 2); Urine Mucus FEW (None Seen); Urine Specific Gravity 1.042 (1.001-1.035); Urine WBC 2 /hpf (0 - 5)
[2022-06-06] MEDS ORDERED: MORPHINE SULFATE INJ 2 MG/ml SYRG IV PRN (04:00)
[2022-06-06] MEDS ORDERED: NITROGLYCERIN 0.4 MG SL TAB SL PRN (04:00)
[2022-06-06] MEDS ORDERED: ONDANSETRON HCL 4 MG/2 ML VIAL IV PRN (04:00)
[2022-06-06] MEDS ORDERED: TEMAZEPAM 15 MG CAP PO PRN (04:00)
[2022-06-06] MEDS ORDERED: DEXTROSE (50%) 50ML SYRG IV PRN (04:00)
[2022-06-06] MEDS ORDERED: ACETAMINOPHEN 325 MG TAB PO PRN (04:00)
[2022-06-06] MEDS: HYDROcodone-ACET 5/325MG TAB PO PRN ×3 (04:53→19:30)
[2022-06-06] MEDS: InsuLIN REG 1unit/0.01ml Soln (100units/ml) SC SCH ×4 (06:00→22:59)
[2022-06-06] MEDS: ACCU-CHEK COMFORT CURVE STRIP VI SCH ×4 (06:00→22:59)
[2022-06-06] MEDS: ASPirin 81 mg TAB PO SCH (09:56)
[2022-06-06] MEDS: CLOPIDOGREL BISULFATE 75 MG TAB PO SCH (09:57)
[2022-06-06] MEDS: PANTOPRAZOLE 40 MG TAB PO SCH (09:57)
[2022-06-06] MEDS: ENOXAPARIN SOD 40 MG/0.4 ML SYRINGE SC SCH (09:58)
[2022-06-06] MEDS: RANOLAZINE ER 500 MG TAB PO SCH ×2 (09:58→21:12)
[2022-06-06] MEDS: METOPROLOL TARTRATE 25 MG TAB PO SCH ×2 (09:58→21:16)
[2022-06-06 14:00] LABS: Cholesterol 156 mg/dL (< 200); HDL Cholesterol 50 mg/dL (40-59); LDL Cholesterol 103 mg/dL (< 100); Triglycerides 89 mg/dL (< 150)
[2022-06-06] MEDS: LISINOPRIL 20 MG TAB PO SCH (21:15)
[2022-06-06] MEDS ORDERED: ATORVASTATIN 20 MG TAB PO SCH (22:00)
[2022-06-06] MEDS: HYDROcodone-ACET 10/325MG TAB PO PRN (23:01)
[2022-06-07 05:00] VITALS: BP 101/61
[2022-06-07 05:58] LABS: Basophils # (auto) 0.1 10 ^3/uL (0-0.2); Basophils % (auto) 0.6 % (0.0-2.0); Eosinophils # (auto) 0.1 10 ^3/uL (0-0.8); Eosinophils % (auto) 0.8 % (0.0-7.0); Hematocrit 38.3 % (36.0-46.0); Hemoglobin 12.8 g/dL (12.2-16.2); Lymphocytes # (auto) 2.6 10 ^3/uL (0.4-5.4); Mean Corpuscular Hemoglobin 31.7 pg (28.0-32.0); Mean Corpuscular Hgb Conc. 33.5 g/dL (32.0-36.0); Mean Corpuscular Volume 94.7 fL (80.0-100.0); Monocytes # (auto) 0.5 10 ^3/uL (0-1.3); Monocytes % (auto) 5.8 % (0.0-12.0); Neutrophils # (auto) 5.5 10 ^3/uL (1.6-8.6); Neutrophils % (auto) 62.8 % (37.0-80.0); Red Blood Cells 4.04 10^6/uL (4.0-5.20); Red Cell Distribution Width 13.7 % (11.8-14.3); White Blood Cell 8.7 10^3/uL (4.4-10.8)
[2022-06-07] MEDS: InsuLIN REG 1unit/0.01ml Soln (100units/ml) SC SCH ×3 (06:00→16:20)
[2022-06-07] MEDS: ACCU-CHEK COMFORT CURVE STRIP VI SCH ×3 (06:00→16:20)
[2022-06-07 06:21] LABS: Chloride 104 mmol/L (98-107); Potassium 3.9 mmol/L (3.5-5.1); Sodium 138 mmol/L (136-145)
[2022-06-07 06:25] LABS: Alanine Aminotransferase 37 U/L (13-56); Albumin 3.2 g/dL (3.4-5.0); Anion Gap 7 (5-15); Aspartate Aminotransferase 16 U/L (15-37); BUN/Creatinine Ratio 24.7; Blood Urea Nitrogen 22 mg/dL (7-18); Calcium 8.4 mg/dL (8.5-10.1); Carbon Dioxide 27 mmol/L (21-32); GFR African American 84 mL/min; GFR Non-African American 69 mL/min; Glucose 58 mg/dL (74-106)
[2022-06-07 06:28] LABS: Alkaline Phosphatase 134 U/L (45-117); Bilirubin, Total 0.8 mg/dL (0.2-1.0); Total Protein 6.6 g/dL (6.4-8.2)
[2022-06-07 08:20] VITALS: BP 98/61
[2022-06-07 09:00] VITALS: BP 98/61
[2022-06-07] MEDS: CLOPIDOGREL BISULFATE 75 MG TAB PO SCH (09:35)
[2022-06-07] MEDS: ASPirin 81 mg TAB PO SCH (09:35)
[2022-06-07] MEDS: PANTOPRAZOLE 40 MG TAB PO SCH (09:36)
[2022-06-07] MEDS: ENOXAPARIN SOD 40 MG/0.4 ML SYRINGE SC SCH (09:36)
[2022-06-07] MEDS: RANOLAZINE ER 500 MG TAB PO SCH (09:36)
[2022-06-07] MEDS: METOPROLOL TARTRATE 25 MG TAB PO SCH (09:36)
[2022-06-07] MEDS: LISINOPRIL 20 MG TAB PO SCH (09:37)
[2022-06-07] MEDS ORDERED: NIFEdipine ER 30 MG TAB PO SCH (10:00)
[2022-06-07 13:00] VITALS: BP 116/61
[2022-06-07] MEDS: HYDROcodone-ACET 10/325MG TAB PO PRN (14:39)
[2022-06-07] MEDS ORDERED: MET25T PO (15:44)
[2022-06-07] MEDS ORDERED: LISI-716 PO (15:44)
[2022-06-07 16:07] VITALS: BP 116/61
== END 2022-06-07 18:09 | disposition home or self-care (01) | DRG 199 ==
LOC: ER 19:42 → TELE 06-06 04:06 → ICU WEST 06-06 04:38 → TELE-WESTW 06-06 17:26
PROVIDERS: ADMIT Nurse Practitioner; ATTEND Hospitalist
DX: I16.1 Hypertensive emergency (principal); E11.22 Type 2 diabetes mellitus with diabetic chronic kidney disease; I50.42 Chronic combined systolic (congestive) and diastolic (congestive) heart failure; I25.10 Atherosclerotic heart disease of native coronary artery without angina pectoris; I13.0 Hypertensive heart and chronic kidney disease with heart failure and stage 1 through stage 4 chronic kidney disease, or unspecified chronic kidney disease; G89.4 Chronic pain syndrome; Z20.822 Contact with and (suspected) exposure to COVID-19; N18.30 Chronic kidney disease, stage 3 unspecified; E66.9 Obesity, unspecified; E78.5 Hyperlipidemia, unspecified; N39.0 Urinary tract infection, site not specified; Z82.49 Family history of ischemic heart disease and other diseases of the circulatory system; Z83.3 Family history of diabetes mellitus; Z90.710 Acquired absence of both cervix and uterus; Z98.61 Coronary angioplasty status; Z68.32 Body mass index [BMI] 32.0-32.9, adult; Z88.8 Allergy status to other drugs, medicaments and biological substances
CPT/HCPCS: 36415; 70450; 71045; 74176; 80053; 80061; 81001; 82962; 83036; 83880; 84443; 84484; 85025; 87081; 93970; 96374; 96375; G0378; J1815; J2405; J3490

== ENCOUNTER → 2022-07-03 | Outpatient (CLI) | payer MEDICAID ==
[~2022-07-03] MED LIST changes: +ATO40T PO; -BACL10TA PO; +DICL1GEL72 EX; +HYDR-4798 PO; +HYDR50TA69 PO; +LEVO50TA7 PO; +LIDO5DIS21 TOP; +LISI-716 PO; +METH750T22 PO; +SERT50TA19 PO
[2022-07-03 09:34] VITALS: BP 99/71
[2022-07-03 09:54] VITALS: BP 113/71
[2022-07-03 12:46] LABS: Basophils # (auto) 0 10 ^3/uL (0-0.2); Basophils % (auto) 0.4 % (0.0-2.0); Eosinophils # (auto) 0.2 10 ^3/uL (0-0.8); Eosinophils % (auto) 2.1 % (0.0-7.0); Hematocrit 42.8 % (36.0-46.0); Lymphocytes # (auto) 2.4 10 ^3/uL (0.4-5.4); Lymphocytes % (auto) 31.4 % (10.0-50.0); Mean Corpuscular Hemoglobin 30.8 pg (28.0-32.0); Mean Corpuscular Hgb Conc. 32.7 g/dL (32.0-36.0); Mean Corpuscular Volume 94.3 fL (80.0-100.0); Monocytes # (auto) 0.4 10 ^3/uL (0-1.3); Monocytes % (auto) 4.8 % (0.0-12.0); Neutrophils # (auto) 4.7 10 ^3/uL (1.6-8.6); Neutrophils % (auto) 61.3 % (37.0-80.0); Red Blood Cells 4.54 10^6/uL (4.0-5.20); Red Cell Distribution Width 13.6 % (11.8-14.3); White Blood Cell 7.6 10^3/uL (4.4-10.8)
[2022-07-03 13:00] LABS: BUN/Creatinine Ratio 18.6; INR 0.99 (0.9-1.15); Partial Thromboplastin Time 28.1 sec (24.6-33.4)
== END | disposition home or self-care (01) ==
LOC: Rad HDHVI 09:16
PROVIDERS: ATTEND Internal Medicine
DX: Z01.818 Encounter for other preprocedural examination (principal); I25.10 Atherosclerotic heart disease of native coronary artery without angina pectoris; R79.1 Abnormal coagulation profile; I73.9 Peripheral vascular disease, unspecified; I10 Essential (primary) hypertension; R07.9 Chest pain, unspecified
CPT/HCPCS: 36415; 71046; 80048; 85025; 85610; 85730; 93005; G0463

== ENCOUNTER 2022-07-05 07:27 | Day surgery (SDC) | payer MEDICAID ==
[~2022-07-05] VITALS: Ht 165.1 cm; Wt 91.6 kg
[~2022-07-05 07:27] MED LIST changes: -ATOR20TA50 PO; -GABA100C9 PO; -HYDR-4833 PO; -LISI-716 PO; -OXYB15TA12 PO; -PANT40T PO; -RISP0.5T17 PO
[2022-07-05] MEDS ORDERED: ANGIOMAX 250 MG VIAL IV ONE (09:53)
[2022-07-05] MEDS ORDERED: HEPARIN SODIUM (PORCINE) 5000 UNITS/ML 1ML VIAL ONE (09:53)
[2022-07-05] MEDS ORDERED: VERAPAMIL 2.5MG/ML INJ 2ML VIAL IV ONE (09:54)
[2022-07-05] MEDS ORDERED: fentaNYL CITRATE 100 MCG/2 ML VL ONE (09:54)
[2022-07-05] MEDS ORDERED: SODIUM CHL 0.9% 0 ML ONE (09:54)
[2022-07-05] MEDS ORDERED: MIDAZOLAM HCL 2MG/2ML 2ml VIAL (1mg/ml) ONE (09:54)
[2022-07-05] MEDS ORDERED: HYDROmorphone HCL 2 MG/ML VL/or syr ONE ×2 (10:12→10:17)
== END 2022-07-05 12:25 | disposition home or self-care (01) ==
LOC: CATH 07:27
PROVIDERS: ATTEND Internal Medicine
DX: R07.9 Chest pain, unspecified (principal); I25.10 Atherosclerotic heart disease of native coronary artery without angina pectoris; I50.9 Heart failure, unspecified; F41.9 Anxiety disorder, unspecified; F32.A Depression, unspecified; F17.200 Nicotine dependence, unspecified, uncomplicated; Z90.710 Acquired absence of both cervix and uterus; Z95.5 Presence of coronary angioplasty implant and graft; Z98.51 Tubal ligation status; Z82.49 Family history of ischemic heart disease and other diseases of the circulatory system; Z83.79 Family history of other diseases of the digestive system
CPT/HCPCS: 93458; C1769; C1887; C1894; J1170; J1644; J2250; J3010; U0003; 99152; 99153

== ENCOUNTER 2023-04-04 14:11 | Emergency (ER) | payer MEDICAID ==
[~2023-04-04] VITALS: Ht 165.1 cm; Wt 89.5 kg
[~2023-04-04 14:11] MED LIST changes: +METH-1182 PO; -METH750T22 PO; +SERT-206 PO; -SERT50TA19 PO
[2023-04-04 14:43] LABS: Basophils # (auto) 0.1 10 ^3/uL (0-0.2); Basophils % (auto) 1.3 % (0.0-2.0); Eosinophils # (auto) 0 10 ^3/uL (0-0.8); Eosinophils % (auto) 0.6 % (0.0-7.0); Hematocrit 42.4 % (36.0-46.0); Hemoglobin 14.4 g/dL (12.2-16.2); Lymphocytes # (auto) 2.6 10 ^3/uL (0.4-5.4); Lymphocytes % (auto) 32.3 % (10.0-50.0); Mean Corpuscular Hemoglobin 31.8 pg (28.0-32.0); Mean Corpuscular Volume 93.6 fL (80.0-100.0); Monocytes # (auto) 0.3 10 ^3/uL (0-1.3); Monocytes % (auto) 3.4 % (0.0-12.0); Neutrophils # (auto) 4.9 10 ^3/uL (1.6-8.6); Neutrophils % (auto) 62.4 % (37.0-80.0); Nucleated Red Blood Cells % 0.2 %; Red Blood Cells 4.53 10^6/uL (4.0-5.20); Red Cell Distribution Width 13.4 % (11.8-14.3); White Blood Cell 7.9 10^3/uL (4.4-10.8)
[2023-04-04 14:59] LABS: INR 1.02 (0.9-1.15); Partial Thromboplastin Time 27.5 SEC (24.5-34.5)
[2023-04-04 15:28] LABS: Albumin 4.2 g/dL (3.4-5.0); Calcium 8.7 mg/dL (8.5-10.1); Magnesium 2.1 mg/dL (1.6-2.6); Potassium 3.9 mmol/L (3.5-5.1)
[2023-04-04 15:33] LABS: BUN/Creatinine Ratio 11.1 (10.0-20.0); Bilirubin, Total 0.7 mg/dL (0.2-1.0); Total Protein 7.6 g/dL (6.4-8.2)
[2023-04-04 15:58] VITALS: BP 139/96
== END 2023-04-04 16:00 | disposition home or self-care (01) ==
LOC: ER 14:11
DX: R07.89 Other chest pain (principal); R00.2 Palpitations; R51.9 Headache, unspecified; R11.2 Nausea with vomiting, unspecified; R19.7 Diarrhea, unspecified; R20.0 Anesthesia of skin; I11.0 Hypertensive heart disease with heart failure; I50.9 Heart failure, unspecified; E78.5 Hyperlipidemia, unspecified; J45.909 Unspecified asthma, uncomplicated; F32.9 Major depressive disorder, single episode, unspecified; F41.9 Anxiety disorder, unspecified; I25.2 Old myocardial infarction; Z98.51 Tubal ligation status; Z90.710 Acquired absence of both cervix and uterus; Z98.61 Coronary angioplasty status; Z88.8 Allergy status to other drugs, medicaments and biological substances
CPT/HCPCS: 36415; 71045; 80053; 83735; 83880; 84484; 85025; 85610; 85730; 93005

== ENCOUNTER 2023-04-09 20:02 | Emergency (ER) | payer MEDICAID ==
[~2023-04-09] VITALS: Ht 165.1 cm; Wt 93.0 kg
[2023-04-09 21:17] LABS: Basophils # (auto) 0.1 10 ^3/uL (0-0.2); Basophils % (auto) 0.8 % (0.0-2.0); Eosinophils # (auto) 0.3 10 ^3/uL (0-0.8); Eosinophils % (auto) 3.8 % (0.0-7.0); Hematocrit 38.1 % (36.0-46.0); Hemoglobin 12.9 g/dL (12.2-16.2); Lymphocytes # (auto) 2.6 10 ^3/uL (0.4-5.4); Lymphocytes % (auto) 35.4 % (10.0-50.0); Mean Corpuscular Hemoglobin 31.9 pg (28.0-32.0); Mean Corpuscular Hgb Conc. 33.8 g/dL (32.0-36.0); Mean Corpuscular Volume 94.4 fL (80.0-100.0); Monocytes # (auto) 0.4 10 ^3/uL (0-1.3); Monocytes % (auto) 5.9 % (0.0-12.0); Neutrophils % (auto) 54.1 % (37.0-80.0); Nucleated Red Blood Cells % 0.1 %; Red Blood Cells 4.04 10^6/uL (4.0-5.20); Red Cell Distribution Width 13.6 % (11.8-14.3); White Blood Cell 7.4 10^3/uL (4.4-10.8)
[2023-04-09 21:31] LABS: Albumin 3.4 g/dL (3.4-5.0); Calcium 8.9 mg/dL (8.5-10.1); Potassium 3.8 mmol/L (3.5-5.1)
[2023-04-09 21:34] LABS: BUN/Creatinine Ratio 13.5 (10.0-20.0); Bilirubin, Total 0.3 mg/dL (0.2-1.0); Total Protein 7.1 g/dL (6.4-8.2)
[2023-04-09 21:43] LABS: Urine WBC None Seen /hpf (0 - 5)
[2023-04-09 21:53] LABS: Urine Bacteria NONE SEEN /hpf (None Seen); Urine Blood Negative /uL (Negative); Urine Specific Gravity 1.022 (1.001-1.035)
[2023-04-09] MEDS ORDERED: HYDROcodone-ACET 5/325MG TAB PO ONE (23:15)
[2023-04-09] MEDS ORDERED: cefTRIAXone SOD 1,000 MG VL IM ONE (23:15)
[2023-04-09] MEDS ORDERED: DexAMETHasone SOD PHOS 4 MG/1ML SDV INJ IM ONE (23:15)
[2023-04-09] MEDS ORDERED: METR-344 PO (23:33)
[2023-04-09] MEDS ORDERED: HYDR4CRE35 PR (23:33)
[2023-04-09] MEDS ORDERED: HYDR-4902 PO (23:33)
[2023-04-10 00:13] VITALS: BP 137/87
[2023-04-10] MEDS ORDERED: LIDOCAINE 1% HCL (LOCAL ANESTH.) INJ 20ML MDV ONE (00:17)
== END 2023-04-10 00:45 | disposition home or self-care (01) ==
LOC: ER 20:02
DX: N76.0 Acute vaginitis (principal); K62.89 Other specified diseases of anus and rectum; N32.89 Other specified disorders of bladder; F12.10 Cannabis abuse, uncomplicated; I11.0 Hypertensive heart disease with heart failure; I50.9 Heart failure, unspecified; E78.5 Hyperlipidemia, unspecified; Z90.710 Acquired absence of both cervix and uterus; Z98.51 Tubal ligation status; Z88.6 Allergy status to analgesic agent
CPT/HCPCS: 36415; 80053; 81001; 85025; 96372; 99284; J0696; J1100; J2001

== ENCOUNTER 2023-07-16 13:53 | Inpatient (IN) | payer MEDICAID ==
[~2023-07-16] VITALS: Ht 165.1 cm; Wt 97.5 kg
[~2023-07-16 13:53] MED LIST changes: +HYDR4CRE35 PR; +METR-344 PO
[2023-07-16] MEDS ORDERED: MORPHINE SULFATE 4 MG/ML SYR/VIAL IV ONE (16:45)
[2023-07-16] MEDS ORDERED: ONDANSETRON HCL 4 MG/2 ML VIAL IV ONE (16:45)
[2023-07-16] MEDS ORDERED: metroNIDAZOLE 500MG/100ML 100 ML IV ONE (16:45)
[2023-07-16 16:59] LABS: Basophils # (auto) 0 10 ^3/uL (0-0.2); Basophils % (auto) 0.7 % (0.0-2.0); Eosinophils # (auto) 0.1 10 ^3/uL (0-0.8); Eosinophils % (auto) 0.9 % (0.0-7.0); Hemoglobin 13.6 g/dL (12.2-16.2); Lymphocytes # (auto) 2.4 10 ^3/uL (0.4-5.4); Lymphocytes % (auto) 37.4 % (10.0-50.0); Mean Corpuscular Volume 94.2 fL (80.0-100.0); Monocytes # (auto) 0.8 10 ^3/uL (0-1.3); Monocytes % (auto) 11.6 % (0.0-12.0); Neutrophils # (auto) 3.2 10 ^3/uL (1.6-8.6); Neutrophils % (auto) 49.4 % (37.0-80.0); Nucleated Red Blood Cells % 0.1 %; Red Blood Cells 4.25 10^6/uL (4.0-5.20); Red Cell Distribution Width 13.4 % (11.8-14.3); White Blood Cell 6.5 10^3/uL (4.4-10.8)
[2023-07-16 17:21] LABS: Alanine Aminotransferase 24 U/L (7-40); Albumin 4.3 g/dL (3.2-4.8); Alkaline Phosphatase 136 U/L (46-116); Anion Gap 5 (5-15); Aspartate Aminotransferase 23 U/L (13-40); Bilirubin, Total 0.4 mg/dL (0.2-1.0); Calcium 9.2 mg/dL (8.7-10.4); Carbon Dioxide 26 mmol/L (20-30); Chloride 109 mmol/L (98-107); Glucose 94 mg/dL (74-106); Lipase 50 U/L (12-53); Potassium 3.7 mmol/L (3.5-5.1); Sodium 140 mmol/L (136-145); Total Protein 6.9 g/dL (5.7-8.2)
[2023-07-16 17:22] LABS: INR 1.03 (0.9-1.15); Partial Thromboplastin Time 25.4 SEC (24.5-34.5); Prothrombin Time 10.8 sec (9.3-11.8)
[2023-07-16 17:23] LABS: BUN/Creatinine Ratio 6.3 (10.0-20.0); Blood Urea Nitrogen < 5 mg/dL (9-23)
[2023-07-16 17:33] LABS: Urine WBC None Seen /hpf (0 - 5)
[2023-07-16 17:48] LABS: Urine Amorphous Crystal MANY /hpf (None Seen); Urine Bacteria NONE SEEN /hpf (None Seen); Urine Blood Negative /uL (Negative); Urine Clarity CLOUDY (Clear); Urine Color Yellow (Yellow); Urine Mucus FEW (None Seen); Urine Protein, UAD 1+ (Negative); Urine Specific Gravity 1.033 (1.001-1.035); Urine pH 5.5 (5.0-8.0)
[2023-07-16] MEDS ORDERED: ONDANSETRON HCL 4 MG/2 ML VIAL IV PRN (22:15)
[2023-07-16] MEDS ORDERED: cefTRIAXone 1GM/50ML D5W 50 ML IV ONE (22:15)
[2023-07-16] MEDS ORDERED: ACETAMINOPHEN 325 MG TAB PO PRN (22:15)
[2023-07-16] MEDS ORDERED: MORPHINE SULFATE INJ 2 MG/ml SYRG IV PRN (22:15)
[2023-07-16] MEDS ORDERED: HYDROcodone-ACET 5/325MG TAB PO PRN (22:15)
[2023-07-17] VITALS (8 sets, daily range): BP systolic 93–129; BP diastolic 65–84; PULSE 51–68; RESP 16–18; TEMP 97.7–98.5; O2SAT 93–98
[2023-07-17] MEDS: metroNIDAZOLE 500MG/100ML 100 ML IV SCH ×3 (05:36→22:44)
[2023-07-17 06:26] LABS: Basophils # (auto) 0 10 ^3/uL (0-0.2); Basophils % (auto) 0.6 % (0.0-2.0); Eosinophils # (auto) 0.1 10 ^3/uL (0-0.8); Eosinophils % (auto) 1.2 % (0.0-7.0); Hematocrit 35.4 % (36.0-46.0); Hemoglobin 12.1 g/dL (12.2-16.2); Lymphocytes # (auto) 1.8 10 ^3/uL (0.4-5.4); Lymphocytes % (auto) 33.9 % (10.0-50.0); Mean Corpuscular Hemoglobin 32.3 pg (28.0-32.0); Mean Corpuscular Hgb Conc. 34.2 g/dL (32.0-36.0); Mean Corpuscular Volume 94.5 fL (80.0-100.0); Monocytes # (auto) 0.5 10 ^3/uL (0-1.3); Monocytes % (auto) 9.6 % (0.0-12.0); Neutrophils # (auto) 2.9 10 ^3/uL (1.6-8.6); Neutrophils % (auto) 54.7 % (37.0-80.0); Nucleated Red Blood Cells % 0.1 %; Red Blood Cells 3.74 10^6/uL (4.0-5.20); Red Cell Distribution Width 13.3 % (11.8-14.3); White Blood Cell 5.3 10^3/uL (4.4-10.8)
[2023-07-17 06:27] LABS: Alanine Aminotransferase 22 U/L (7-40); Albumin 3.7 g/dL (3.2-4.8); Alkaline Phosphatase 104 U/L (46-116); Anion Gap 8 (5-15); Aspartate Aminotransferase 21 U/L (13-40); Bilirubin, Total 0.5 mg/dL (0.2-1.0); Calcium 8.4 mg/dL (8.5-10.1); Carbon Dioxide 25 mmol/L (20-30); Chloride 106 mmol/L (98-107); Glucose 115 mg/dL (74-106); Potassium 3.3 mmol/L (3.5-5.1); Sodium 139 mmol/L (136-145)
[2023-07-17 06:28] LABS: Total Protein 5.9 g/dL (5.7-8.2)
[2023-07-17 06:30] LABS: BUN/Creatinine Ratio 7.5 (10.0-20.0); Blood Urea Nitrogen < 5 mg/dL (9-23)
[2023-07-17] MEDS: LEVOTHYROXINE SODIUM 50 MCG TAB PO SCH (07:04)
[2023-07-17] MEDS: SERTRALINE HCL 50 MG TAB PO SCH (08:57)
[2023-07-17] MEDS: cefTRIAXone 1GM/50ML D5W 50 ML IV SCH (08:57)
[2023-07-17] MEDS: CLOPIDOGREL BISULFATE 75 MG TAB PO SCH (08:57)
[2023-07-17] MEDS: METOPROLOL TARTRATE 25 MG TAB PO SCH ×2 (08:58→22:43)
[2023-07-17] MEDS: FAMOTIDINE 20 MG TAB PO SCH (08:58)
[2023-07-17] MEDS: HYDROcodone-ACET 10/325MG TAB PO SCH ×2 (14:26→17:49)
[2023-07-17] MEDS: ATORVASTATIN 20 MG TAB PO SCH (22:42)
[2023-07-18] MEDS: HYDROcodone-ACET 10/325MG TAB PO SCH ×5 (04:38→23:06)
[2023-07-18 05:00] VITALS: BP 113/71; PULSE 71; RESP 18; TEMP 98.8; O2SAT 97
[2023-07-18] MEDS: metroNIDAZOLE 500MG/100ML 100 ML IV SCH ×3 (06:03→21:31)
[2023-07-18] MEDS: LEVOTHYROXINE SODIUM 50 MCG TAB PO SCH (06:24)
[2023-07-18 08:00] VITALS: BP 96/60; PULSE 20; PULSE 57; RESP 20; TEMP 98.2; O2SAT 92
[2023-07-18] MEDS: cefTRIAXone 1GM/50ML D5W 50 ML IV SCH (08:36)
[2023-07-18] MEDS: FAMOTIDINE 20 MG TAB PO SCH (08:37)
[2023-07-18] MEDS: CLOPIDOGREL BISULFATE 75 MG TAB PO SCH (08:37)
[2023-07-18] MEDS: SERTRALINE HCL 50 MG TAB PO SCH (08:37)
[2023-07-18 09:00] VITALS: BP 96/60; PULSE 57; RESP 20; TEMP 98.2; O2SAT 97
[2023-07-18] MEDS: METOPROLOL TARTRATE 25 MG TAB PO SCH ×2 (11:30→21:39)
[2023-07-18 13:00] VITALS: BP 137/87; PULSE 58; RESP 18; TEMP 98.1; O2SAT 97
[2023-07-18] MEDS: HYDROCORTISONE 2.5% TOPICAL CREAM 30GM TUBE PR SCH ×2 (14:28→21:32)
[2023-07-18 17:00] VITALS: BP 104/77; PULSE 60; RESP 18; TEMP 98.3; O2SAT 95
[2023-07-18] MEDS: ATORVASTATIN 20 MG TAB PO SCH (21:31)
[2023-07-18 22:00] VITALS: BP 127/69; PULSE 63; RESP 18; TEMP 98.3; O2SAT 96
[2023-07-18] MEDS ORDERED: traZODone HCL 50 MG TAB PO SCH (22:00)
[2023-07-19] MEDS: HYDROCORTISONE 2.5% TOPICAL CREAM 30GM TUBE PR SCH ×2 (06:00→14:00)
[2023-07-19] MEDS: metroNIDAZOLE 500MG/100ML 100 ML IV SCH ×2 (06:00→14:00)
[2023-07-19] MEDS: HYDROcodone-ACET 10/325MG TAB PO SCH ×2 (06:00→12:00)
[2023-07-19] MEDS: LEVOTHYROXINE SODIUM 50 MCG TAB PO SCH (07:00)
[2023-07-19] MEDS: cefTRIAXone 1GM/50ML D5W 50 ML IV SCH (09:00)
[2023-07-19] MEDS: METOPROLOL TARTRATE 25 MG TAB PO SCH (10:00)
[2023-07-19] MEDS: SERTRALINE HCL 50 MG TAB PO SCH (10:00)
[2023-07-19] MEDS: FAMOTIDINE 20 MG TAB PO SCH (10:00)
[2023-07-19] MEDS: CLOPIDOGREL BISULFATE 75 MG TAB PO SCH (10:00)
[2023-07-19] MEDS ORDERED: LEVO500T91 PO (12:17)
[2023-07-19] MEDS ORDERED: MET500T PO (12:17)
[2023-07-19 13:46] VITALS: BP 148/87; PULSE 65; TEMP 36.8
== END 2023-07-19 15:12 | disposition home or self-care (01) | DRG 244 ==
LOC: ER 13:53 → OVERFLOW 22:17 → WEST WING 07-17 03:08
PROVIDERS: ADMIT Nurse Practitioner; ATTEND Family Medicine
DX: K57.93 Diverticulitis of intestine, part unspecified, without perforation or abscess with bleeding (principal); I11.0 Hypertensive heart disease with heart failure; I50.9 Heart failure, unspecified; E03.9 Hypothyroidism, unspecified; R21 Rash and other nonspecific skin eruption; E78.00 Pure hypercholesterolemia, unspecified; F32.A Depression, unspecified; I25.2 Old myocardial infarction; Z82.49 Family history of ischemic heart disease and other diseases of the circulatory system; Z83.3 Family history of diabetes mellitus; Z90.710 Acquired absence of both cervix and uterus
CPT/HCPCS: 36415; 74176; 80053; 81001; 82270; 83690; 85025; 85610; 85730; 86850; 86900; 86901; G0378; J0696; J2405; J3490

== ENCOUNTER 2024-01-28 21:07 | Emergency (ER) | payer MEDICAID ==
[~2024-01-28] VITALS: Ht 165.1 cm; Wt 93.6 kg
[~2024-01-28 21:07] MED LIST changes: -ATO40T PO; +ATOR-507 PO; -HYDR4CRE35 PR; +LEVO500T91 PO; -LEVO50TA7 PO; +MET500T PO; -METR-344 PO
[2024-01-28 22:08] LABS: Basophils # (auto) 0.1 10 ^3/uL (0-0.2); Basophils % (auto) 0.8 % (0.0-2.0); Eosinophils # (auto) 0.1 10 ^3/uL (0-0.8); Eosinophils % (auto) 0.8 % (0.0-7.0); Hematocrit 41.3 % (36.0-46.0); Hemoglobin 13.7 g/dL (12.2-16.2); Lymphocytes # (auto) 3.7 10 ^3/uL (0.4-5.4); Lymphocytes % (auto) 38.8 % (10.0-50.0); Mean Corpuscular Hemoglobin 31.1 pg (28.0-32.0); Mean Corpuscular Hgb Conc. 33.2 g/dL (32.0-36.0); Mean Corpuscular Volume 93.7 fL (80.0-100.0); Monocytes # (auto) 0.6 10 ^3/uL (0-1.3); Monocytes % (auto) 6.2 % (0.0-12.0); Neutrophils % (auto) 53.4 % (37.0-80.0); Red Blood Cells 4.41 10^6/uL (4.0-5.20); White Blood Cell 9.4 10^3/uL (4.4-10.8)
[2024-01-28 22:17] LABS: Chloride 107 mmol/L (98-107); Potassium 3.6 mmol/L (3.5-5.1); Sodium 139 mmol/L (136-145)
[2024-01-28 22:18] LABS: Anion Gap 5 (5-15); Calcium 9.5 mg/dL (8.7-10.4); Carbon Dioxide 27 mmol/L (20-30)
[2024-01-28 22:23] LABS: BUN/Creatinine Ratio 14.8 (10.0-20.0); Blood Urea Nitrogen 12 mg/dL (9-23); Glucose 86 mg/dL (74-106)
[2024-01-29] MEDS ORDERED: MET25T PO (00:26)
[2024-01-29] MEDS: HYDROcodone-ACET 10/325MG TAB PO ONE ×2 (01:47→11:42)
[2024-01-29 11:28] VITALS: BP 149/100; PULSE 82; RESP 16; TEMP 98.3; O2SAT 95
== END 2024-01-29 11:47 | disposition home or self-care (01) ==
LOC: ER 21:07
DX: R51.9 Headache, unspecified (principal); I11.0 Hypertensive heart disease with heart failure; I50.9 Heart failure, unspecified; I25.2 Old myocardial infarction; E78.5 Hyperlipidemia, unspecified; M25.512 Pain in left shoulder; Z90.710 Acquired absence of both cervix and uterus; Z79.82 Long term (current) use of aspirin; Z79.01 Long term (current) use of anticoagulants; Z79.2 Long term (current) use of antibiotics; Z79.899 Other long term (current) drug therapy; Z88.8 Allergy status to other drugs, medicaments and biological substances
CPT/HCPCS: 36415; 70450; 73030; 80048; 84484; 85025; 93005

== ENCOUNTER 2024-02-01 20:16 | Emergency (ER) | payer MEDICAID ==
[~2024-02-01] VITALS: Ht 165.1 cm; Wt 95.0 kg
[2024-02-01 21:18] VITALS: BP 124/69; PULSE 86; RESP 16; TEMP 99
[2024-02-01] MEDS ORDERED: CLON-1004 PO ×2 (23:17→23:18)
[2024-02-01 23:41] VITALS: O2SAT 97
== END 2024-02-01 23:45 | disposition home or self-care (01) ==
LOC: ER 20:16
DX: F32.9 Major depressive disorder, single episode, unspecified (principal); E78.5 Hyperlipidemia, unspecified; I11.0 Hypertensive heart disease with heart failure; I50.9 Heart failure, unspecified; F12.10 Cannabis abuse, uncomplicated; Z98.51 Tubal ligation status; Z90.710 Acquired absence of both cervix and uterus; Z76.0 Encounter for issue of repeat prescription

== ENCOUNTER 2024-05-15 08:31 | Inpatient (IN) | payer MEDICAID ==
[~2024-05-15] VITALS: Ht 165.1 cm; Wt 98.0 kg
[~2024-05-15 08:31] MED LIST changes: +CLON-1004 PO
[2024-05-15] MEDS ORDERED: HALOPERIDOL LACTATE 5 MG/ML INJ VIAL IV ONE (08:45)
[2024-05-15 09:15] VITALS: PULSE 73; RESP 14; O2SAT 100
[2024-05-15] MEDS: ASPirin 81 mg TAB PO ONE (09:39)
[2024-05-15] MEDS: SODIUM CHLORIDE 0.9% 1,000 ML IVB ONE (09:39)
[2024-05-15] MEDS: ONDANSETRON HCL 4 MG/2 ML VIAL IV ONE (09:40)
[2024-05-15] MEDS: HALOPERIDOL LACTATE 5 MG/ML INJ VIAL IM ONE (09:40)
[2024-05-15] MEDS: MORPHINE SULFATE INJ 2 MG/ml SYRG IV ONE (09:41)
[2024-05-15] MEDS: FAMOTIDINE (10MG/ML) 2ML VL IV ONE (09:54)
[2024-05-15 10:14] LABS: Basophils # (auto) 0 10 ^3/uL (0-0.2); Basophils % (auto) 0.4 % (0.0-2.0); Eosinophils # (auto) 0.1 10 ^3/uL (0-0.8); Eosinophils % (auto) 0.6 % (0.0-7.0); Hematocrit 42.8 % (36.0-46.0); Hemoglobin 14.5 g/dL (12.2-16.2); Lymphocytes # (auto) 1.7 10 ^3/uL (0.4-5.4); Lymphocytes % (auto) 18.2 % (10.0-50.0); Mean Corpuscular Hemoglobin 31.8 pg (28.0-32.0); Mean Corpuscular Hgb Conc. 33.8 g/dL (32.0-36.0); Mean Corpuscular Volume 94.1 fL (80.0-100.0); Monocytes # (auto) 0.3 10 ^3/uL (0-1.3); Monocytes % (auto) 2.7 % (0.0-12.0); Neutrophils # (auto) 7.4 10 ^3/uL (1.6-8.6); Neutrophils % (auto) 78.1 % (37.0-80.0); Nucleated Red Blood Cells % 0.1 %; Red Blood Cells 4.55 10^6/uL (4.0-5.20); Red Cell Distribution Width 13.4 % (11.8-14.3); White Blood Cell 9.5 10^3/uL (4.4-10.8)
[2024-05-15 10:35] LABS: Alanine Aminotransferase 41 U/L (7-40); Albumin 4.6 g/dL (3.2-4.8); Alkaline Phosphatase 170 U/L (46-116); Anion Gap 10 (5-15); Aspartate Aminotransferase 34 U/L (13-40); BUN/Creatinine Ratio 12.3 (10.0-20.0); Bilirubin, Total 0.8 mg/dL (0.2-1.0); Blood Urea Nitrogen 9 mg/dL (9-23); Carbon Dioxide 25 mmol/L (20-30); Chloride 106 mmol/L (98-107); Glucose 184 mg/dL (74-106); Magnesium 1.7 mg/dL (1.6-2.6); Potassium 3.8 mmol/L (3.5-5.1); Sodium 141 mmol/L (136-145); Total Protein 7.1 g/dL (5.7-8.2)
[2024-05-15 10:41] LABS: INR 1.01 (0.9-1.15); Prothrombin Time 10.7 sec (9.3-11.8)
[2024-05-15] MEDS: hydrALAZINE HCL 20 MG/ML VL IV ONE ×2 (10:48→14:40)
[2024-05-15 11:32] LABS: COVID19 ANTIGEN SOFIA FIA NEGATIVE (NEGATIVE); Rapid Influenza A Negative (Negative); Rapid Influenza B Negative (Negative)
[2024-05-15] MEDS: ENOXAPARIN SOD 100 MG/1 ML SYRINGE SC ONE (14:56)
[2024-05-15] MEDS ORDERED: NITROGLYCERIN 0.4 MG SL TAB SL PRN (15:15)
[2024-05-15] MEDS ORDERED: ONDANSETRON HCL 4 MG/2 ML VIAL IV PRN (15:15)
[2024-05-15] MEDS ORDERED: MORPHINE SULFATE INJ 2 MG/ml SYRG IV PRN (15:15)
[2024-05-15] MEDS ORDERED: LABETALOL HCL 20 MG/4 ML VL IV PRN (15:15)
[2024-05-15] MEDS ORDERED: hydrALAZINE HCL 20 MG/ML VL IV PRN (15:15)
[2024-05-15] MEDS: LABETALOL HCL 20 MG/4 ML VL IV ONE (15:42)
[2024-05-15] MEDS ORDERED: hydrOXYzine 25 MG TAB or CAP PO PRN (15:45)
[2024-05-15] MEDS: HYDROmorphone HCL 2 MG/ML VL/or syr IV PRN (18:41)
[2024-05-15 20:00] VITALS: PULSE 91; RESP 12; O2SAT 93
[2024-05-15 21:57] VITALS: PULSE 84; RESP 13; O2SAT 96
[2024-05-15] MEDS: METOPROLOL TARTRATE 25 MG TAB PO SCH (23:23)
[2024-05-15] MEDS: SODIUM CHLOR 0.9% PF (SALINE LOCK) 10ML VIAL/SYR IV SCH (23:24)
[2024-05-15] MEDS: HYDROcodone-ACET 5/325MG TAB PO PRN (23:41)
[2024-05-15] MEDS: busPIRone HCL 10 MG TAB PO SCH (23:42)
[2024-05-15] MEDS: traZODone HCL 50 MG TAB PO SCH (23:42)
[2024-05-15] MEDS: ATORVASTATIN 20 MG TAB PO SCH (23:42)
[2024-05-16] VITALS (7 sets, daily range): BP systolic 97–113; BP diastolic 59–87; PULSE 61–86; RESP 17–20; TEMP 97.9–98.5; O2SAT 92–97
[2024-05-16] MEDS ORDERED: PATIENTS OWN MEDICATION (Sertraline Hcl (Zoloft) 1 TAB) PO SCH (10:00)
[2024-05-16] MEDS: CLOPIDOGREL BISULFATE 75 MG TAB PO SCH (10:15)
[2024-05-16] MEDS: ASPirin 81 mg TAB PO SCH (10:15)
[2024-05-16] MEDS: SERTRALINE HCL 50 MG TAB PO SCH (10:15)
[2024-05-16] MEDS: ENOXAPARIN SOD 40 MG/0.4 ML SYRINGE SC SCH (10:18)
[2024-05-16] MEDS ORDERED: MET25T PO (13:10)
[2024-05-17] VITALS (9 sets, daily range): BP systolic 84–162; BP diastolic 49–88; PULSE 53–83; RESP 15–18; TEMP 96.8–98.4; O2SAT 94–98
[2024-05-17 06:06] LABS: Basophils # (auto) 0 10 ^3/uL (0-0.2); Basophils % (auto) 0.4 % (0.0-2.0); Eosinophils # (auto) 0.1 10 ^3/uL (0-0.8); Eosinophils % (auto) 1.1 % (0.0-7.0); Hematocrit 37.4 % (36.0-46.0); Lymphocytes # (auto) 2.3 10 ^3/uL (0.4-5.4); Lymphocytes % (auto) 28.6 % (10.0-50.0); Mean Corpuscular Hemoglobin 32.3 pg (28.0-32.0); Mean Corpuscular Hgb Conc. 34.7 g/dL (32.0-36.0); Mean Corpuscular Volume 93.1 fL (80.0-100.0); Monocytes # (auto) 0.5 10 ^3/uL (0-1.3); Monocytes % (auto) 6.6 % (0.0-12.0); Neutrophils % (auto) 63.3 % (37.0-80.0); Nucleated Red Blood Cells % 0.1 %; Red Blood Cells 4.02 10^6/uL (4.0-5.20)
[2024-05-17 06:23] LABS: Anion Gap 6 (5-15); Carbon Dioxide 30 mmol/L (20-30); Chloride 107 mmol/L (98-107); Potassium 3.4 mmol/L (3.5-5.1); Sodium 143 mmol/L (136-145)
[2024-05-17 06:25] LABS: Calcium 9.2 mg/dL (8.7-10.4)
[2024-05-17 06:29] LABS: BUN/Creatinine Ratio 15.8 (10.0-20.0); Blood Urea Nitrogen 12 mg/dL (9-23); Glucose 79 mg/dL (74-106); Partial Thromboplastin Time 25.7 SEC (24.5-34.5); Prothrombin Time 10.6 sec (9.3-11.8)
[2024-05-17] MEDS: HYDROcodone-ACET 5/325MG TAB PO ONE (12:19)
[2024-05-17] MEDS: METOPROLOL TARTRATE 25 MG TAB PO SCH (12:21)
[2024-05-17] MEDS ORDERED: HYDROcodone-ACET 10/325MG TAB PO SCH (14:00)
[2024-05-17 15:37] LABS: Triglycerides 90 mg/dL (< 150)
[2024-05-17 15:38] LABS: LDL Cholesterol 91 mg/dL (< 100)
[2024-05-17 15:39] LABS: Cholesterol 151 mg/dL (< 200); HDL Cholesterol 45 mg/dL (40-59)
[2024-05-17] MEDS: POTASSIUM CHL 20 Meq TABLET PO ONE (16:45)
[2024-05-17] MEDS: HYDROcodone-ACET 10/325MG TAB PO PRN (16:46)
[2024-05-18] VITALS (8 sets, daily range): BP systolic 125–143; BP diastolic 72–87; PULSE 61–112; RESP 16–20; TEMP 97.5–98.4; O2SAT 94–100
[2024-05-18 07:51] LABS: Chloride 108 mmol/L (98-107); Potassium 3.9 mmol/L (3.5-5.1); Sodium 141 mmol/L (136-145)
[2024-05-18 07:52] LABS: Carbon Dioxide 30 mmol/L (20-30)
[2024-05-18 07:53] LABS: Anion Gap 3 (5-15); Calcium 9.3 mg/dL (8.7-10.4)
[2024-05-18 07:58] LABS: BUN/Creatinine Ratio 18.3 (10.0-20.0); Blood Urea Nitrogen 13 mg/dL (9-23); Glucose 109 mg/dL (74-106)
[2024-05-18] MEDS: DOCUSATE SOD 100 MG CAP PO PRN (16:47)
[2024-05-18 20:00] LABS: Amphetamine Screen, Urine Neg (NEGATIVE); Barbiturate Scree,Urine Neg (NEGATIVE); Benzodiazephine Screen, Urine Neg (NEGATIVE); Cannabinoid Screen, Urine Pos (NEGATIVE); Cocaine Screen, Urine Neg (NEGATIVE); Opiate Scree,Urine Pos (NEGATIVE); Phencyclidine Screen, Urine Neg (NEGATIVE)
[2024-05-19] VITALS (8 sets, daily range): BP systolic 108–142; BP diastolic 39–91; PULSE 76–111; RESP 16–18; TEMP 97.6–98.7; O2SAT 92–97
[2024-05-19 07:10] LABS: Basophils # (auto) 0 10 ^3/uL (0-0.2); Basophils % (auto) 0.5 % (0.0-2.0); Eosinophils # (auto) 0.1 10 ^3/uL (0-0.8); Eosinophils % (auto) 1.2 % (0.0-7.0); Hematocrit 38.8 % (36.0-46.0); Hemoglobin 13.4 g/dL (12.2-16.2); Lymphocytes # (auto) 2.8 10 ^3/uL (0.4-5.4); Lymphocytes % (auto) 31.2 % (10.0-50.0); Mean Corpuscular Hemoglobin 32.3 pg (28.0-32.0); Mean Corpuscular Hgb Conc. 34.6 g/dL (32.0-36.0); Mean Corpuscular Volume 93.5 fL (80.0-100.0); Monocytes # (auto) 0.7 10 ^3/uL (0-1.3); Monocytes % (auto) 8.2 % (0.0-12.0); Neutrophils # (auto) 5.3 10 ^3/uL (1.6-8.6); Neutrophils % (auto) 58.9 % (37.0-80.0); Nucleated Red Blood Cells % 0.1 %; Red Blood Cells 4.16 10^6/uL (4.0-5.20); Red Cell Distribution Width 13.1 % (11.8-14.3); White Blood Cell 9.1 10^3/uL (4.4-10.8)
[2024-05-19 07:11] LABS: Anion Gap 7 (5-15); Calcium 9.7 mg/dL (8.7-10.4); Carbon Dioxide 26 mmol/L (20-30); Chloride 108 mmol/L (98-107); Potassium 3.9 mmol/L (3.5-5.1); Sodium 141 mmol/L (136-145)
[2024-05-19 07:16] LABS: Glucose 122 mg/dL (74-106)
[2024-05-19 07:17] LABS: BUN/Creatinine Ratio 16.4 (10.0-20.0); Blood Urea Nitrogen 11 mg/dL (9-23)
[2024-05-19 08:56] LABS: Hepatitis B Surface Antigen Negative (Negative)
[2024-05-19 09:18] LABS: Hepatitis C Antibody Negative (Negative)
[2024-05-19] MEDS: IODIXANOL 320MG/ML 100ML BTL IV ONE (10:42)
[2024-05-19] MEDS: HEPARIN IN NS 1000Units/500mL 1,500 ML ONE (10:43)
[2024-05-19] MEDS: ANGIOMAX 250 MG VIAL IV ONE (10:48)
[2024-05-19] MEDS: VERAPAMIL 2.5MG/ML INJ 2ML VIAL IV ONE (10:48)
[2024-05-19] MEDS: fentaNYL CITRATE 100 MCG/2 ML VL ONE (10:48)
[2024-05-19] MEDS: SODIUM CHL 0.9% 0 ML ONE (10:49)
[2024-05-19] MEDS: MIDAZOLAM HCL 2MG/2ML 2ml VIAL (1mg/ml) ONE (10:49)
[2024-05-19] MEDS: LIDOCAINE 2%HCL (LOCAL ANESTH.) INJ 20ML MDV ONE (11:06)
[2024-05-19] MEDS: HEPARIN SODIUM (PORCINE) 5000 UNITS/ML 1ML VIAL ONE (11:07)
[2024-05-19] MEDS: ACETAMINOPHEN 325 MG TAB PO PRN (16:53)
== END 2024-05-19 18:30 | disposition home or self-care (01) | DRG 190 ==
LOC: EDBD 08:31 → ER 08:31 → TELE 15:18 → TELE-WESTW 05-16 04:15
PROVIDERS: ADMIT Internal Medicine; ATTEND Hospitalist
PROC: 4A023N7 Measurement of Cardiac Sampling and Pressure, Left Heart, Percutaneous Approach (ICD-10-PCS; principal; 2024-05-19)
PROC: B211YZZ Fluoroscopy of Multiple Coronary Arteries using Other Contrast (ICD-10-PCS; 2024-05-19)
PROC: 4A033BC Measurement of Arterial Pressure, Coronary, Percutaneous Approach (ICD-10-PCS; 2024-05-19)
DX: I21.4 Non-ST elevation (NSTEMI) myocardial infarction (principal); I50.30 Unspecified diastolic (congestive) heart failure; I11.0 Hypertensive heart disease with heart failure; E66.01 Morbid (severe) obesity due to excess calories; E78.5 Hyperlipidemia, unspecified; A08.4 Viral intestinal infection, unspecified; K57.92 Diverticulitis of intestine, part unspecified, without perforation or abscess without bleeding; Z20.822 Contact with and (suspected) exposure to COVID-19; F31.9 Bipolar disorder, unspecified; I16.0 Hypertensive urgency; I25.10 Atherosclerotic heart disease of native coronary artery without angina pectoris; Z68.36 Body mass index [BMI] 36.0-36.9, adult; Z91.199 Patient's noncompliance with other medical treatment and regimen due to unspecified reason; Z79.02 Long term (current) use of antithrombotics/antiplatelets; Z90.710 Acquired absence of both cervix and uterus; Z82.49 Family history of ischemic heart disease and other diseases of the circulatory system; Z79.899 Other long term (current) drug therapy
CPT/HCPCS: 36415; 71046; 74176; 80048; 80053; 80061; 80307; 83036; 83735; 83880; 84443; 84484; 85025; 85610; 85730; 86803; 86850; 86900; 86901; 87340; 87426; 87804; 93005; 93306; 93458; 93571; 96361; 96372; 96374; 96375; G0378; J2250; J2405; J3490; Q9967

== ENCOUNTER 2025-01-26 20:25 | Emergency (ER) | payer MEDICAID ==
[~2025-01-26] VITALS: Ht 165.1 cm; Wt 100.0 kg
[~2025-01-26 20:25] MED LIST changes: -HYDR50TA69 PO; -LEVO500T91 PO; -MET500T PO; -SERT-206 PO
[2025-01-26 20:45] VITALS: PULSE 76; TEMP 99.4; O2SAT 95
--- NOTE | 2025-01-26 22:23 | ED.PDOC ---
Back pain HPI HPI Comments PATIENT C/O BACK PAIN FOR 2 WEEKS, INCREASING DUE TO HER BEING OUT OF PRESCRIBED NORCO 10/325. PT HAS DEGENERATIVE DISC DISEASE, CHRONIC BACK PAIN. HAS BEEN OUT OF PRESCRIBED PAIN MEDICATION FOR 2 MONTHS DUE TO INSURANCE ISSUES. SEES PAIN MANAGEMENT, NEXT APPT 02/03. NUMBNESS, WEAKNESS, KNOWN INJURY, LOSS OF BOWEL BLADDER CONTROL, SADDLE ANESTHESIA OR ANY FOCAL NEURO DEFICITS. Chief Complaint: Back Pain Time Seen by MD: 21:16 Primary Care Provider: DAVID Rooney Notes: Nurses Notes, Medications, Allergies Allergies: Coded Allergies: Ketorolac Tromethamine (Verified Allergy, Severe, 01/06/20) Home Meds Active Scripts Tizanidine Hydrochloride (Tizanidine Hcl) 4 Mg Tab, 4 MG PO BID for 7 Days, #14 TAB Prov:JAILENE GAYTANP 01/26/25 Methylprednisolone (Medrol Dosepak) 4 Mg Chris, 4 MG PO UD for 6 Days, #21 TAB UAD Prov:JAILENE GAYTAN 01/26/25 Metoprolol Tartrate (Lopressor) 25 Mg Tb, 25 MG PO BID, #60 TAB Prov:PANCHO EDEN MD 05/16/24 Clonazepam (Klonopin) 1 Mg Tab, 1 TAB PO BID, #30 TAB Prov:ALPHONSE NARAYANAN [facility] 02/01/24 Clopidogrel Bisulfate (Plavix) 75 Mg Tab, 75 MG PO DAILY, #30 TAB Prov:RISHABH MENDES MD 02/25/19 Aspirin (Asa) 81 Mg Ch, 81 MG PO DAILY, #30 Prov:RISHABH MENDES MD 02/25/19 Reported Medications Diclofenac Sodium (Topical) (Arthritis Pain Reliever) 1 % Gel, 1 % EX BID for ARTHRITIS PAIN, GEL 07/03/22 Lidocaine (LIDODERM 5% TOPICAL PATCH) 1 Patch Ph, 1 PATCH TOP DAILY for PAIN, #30 PATCH 1 Refill 07/03/22 Atorvastatin Calcium (Lipitor) 40 Mg Tab, 1 TAB PO QPM for HYPERLIPIDEMIA, #90 TAB 1 Refill 07/03/22 Methocarbamol (Methocarbamol) 750 Mg Tab, 750 MG PO Q8HPRN PRN for BREAKTHROUGH PAIN for 30 Days, MG 07/03/22 Hydrocodone-Acetaminophen (Hydrocodone Bitartrate/AC 10-325 mg) 1 Tab Tab, 1 TAB PO TID for PAIN, TAB 07/03/22 Buspirone Hcl (Buspirone Hcl) 10 Mg Tab, 10 MG PO TID for ANXIETY, TAB 02/23/19 Sertraline Hcl (Zoloft) 100 Mg Tab, 1 TAB PO DAILY for ANXIETY, #30 TAB 5 Refills 02/23/19 Trazodone Hcl (Trazodone Hcl) 150 Mg Tab, 150 MG PO HS for DEPRESSION, MG 02/22/19 Information Source: Patient Mode of Arrival: Ambulatory Past Medical History PAST MEDICAL HISTORY: Anxiety, CHF, Depression, High Lipids, HTN, CO Surgical History: BTL, Hysterectomy, [employer] CORPORATE CLAIMS EXAMINER History: No Pertinent CORPORATE CLAIMS EXAMINER History Family History Family History: Reviewed,noncontributory to illness, Family hx of DM, Family hx of heart royce Social History Smoker: Non-Smoker Alcohol: Denies ETOH Use Drugs: Marijuana Lives In: Home Constitutional: denies: chills, diaphoresis, fatigue, fever, malaise, sweats, weakness, others EENTM: denies: blurred vision, double vision, ear bleeding, ear discharge, ear drainage, ear pain, ear ringing, eye pain, eye redness, hearing loss, mouth pain, mouth swelling, nasal discharge, nose bleeding, nose congestion, nose pain, photophobia, tearing, throat pain, throat swelling, voice changes, others Respiratory: denies: cough, hemoptysis, orthopnea, SOB at rest, shortness of breath, SOB with excertion, stridor, wheezing, others Cardiovascular: denies: chest pain, dizzy spells, diaphoresis, Dyspnea on exertion, edema, irregular heart beat, left arm pain, lightheadedness, palpitati ons, PND, syncope, others Gastrointestinal: denies: abdomen distended, abdominal pain, blood streaked bowels, constipated, diarrhea, dysphagia, difficulty swallowing, hematemesis, melena, nausea, poor appetite, poor fluid intake, rectal bleeding, rectal pain, vomiting, others Genitourinary: denies: abnormal vagina bleeding, burning, dyspareunia, dysuria, flank pain, frequency, hematuria, incontinence, pain, , vagina discharge, urgency, others Neurological: denies: dizziness, fainting, headache, left sided numbness, left sided weakness, numbness, paresthesia, pre-existing deficit, right sided numbness, right sided weakness, seizure, speech problems, tingling, tremors, weakness, others Musculoskeletal: reports: back pain; denies: gout, joint pain, joint swelling, muscle pain, muscle stiffness, neck pain, others Integumetry: denies: bruises, change in color, change in hair/nails, dryness, laceration, lesions, lumps, rash, wounds, others Allergic/Immunocompromised: denies: Difficulty Healing, Frequent Infections, Hives, Itching, others Hematologic/Lymphatic: denies: anemia, blood clots, easy bleeding, easy bruising, swollen glands, others Endocrine: denies: excessive hunger, excessive sweating, excessive thirst, excessive urination, flushing, intolerance to cold, intolerance to heat, unexplained weight gain, unexplained weight loss, others Psychiatric: denies: anxiety, bipolar disorder, depression, hopeless, panic dis order, schizophrenia, sleepless, suicidal, others Physical Exam General Appearance: No Apparent Distress, Normal HEENT: Pharynx Normal Neck: Full Range of Motion, Non-Tender Respiratory: Lungs Clear, No Respiratory Distress, Normal Breath Sounds Cardiovascular: No Edema, No JVD, No Murmur, No Gallop, Normal Peripheral Pulses, Regular Rate/Rhythm Breast Exam: Deferred Gastrointestinal: No Organomegaly, Non Tender, No Pulsatile Mass, Normal Bowel Sounds, Soft Genitalia: Deferred Pelvic: Deferred Rectal: Deferred Extremities: Normal capillary refill, Normal inspection, Normal range of motion, Non-tender, No pedal edema Musculoskeletal : Location: Right Extremity Location: Back (MODERATE TENDERNESS AND DISCOMFORT PALPATED OVER T4 THROUGH T8 THORACIC SPINE RIGHT SIDE GREATER THAN LEFT NO NOTED CREPITUS OR STEP-OFFS STRENGTH SENSORY MOTION INTACT PATIENT MOVING ALL EXTREMITIES NEGATIVE STRAIGHT LEG RAISE POSITIVE PEDAL PULSES POSITIVE RADIAL PULSES) Apperance: Normal Neurologic: Alert, lab director II-XII nml as Tested, No Motor Deficits, Normal Affect, Normal Mood, No Sensory Deficits Cerebellar Function: Normal Reflexes: Normal Skin: Dry, Normal Color, Warm Lymphatic: No Adenopathy Was a procedure done? Was a procedure done?: No Back Pain Differential Dx Differential Diagnosis: Fracture, Musculoskeletal Pain, Strain X-Ray, Labs, Meds, VS Vital Signs Date Time Temp Pulse Resp B/P (MAP) Pulse Ox O2 Delivery O2 Flow Rate FiO2 4/21/25 23:11 67 146/93 (110) 01/26/25 20:45 99.4 76 18 175/103 (127) 95 99.4 01/26/25 20:45 99.4 76 18 175/103 (127) 95 99.4 01/26/25 20:45 Room Air Current Medications Medications (Trade) Dose Ordered Sig/Samy Route Start Time Stop Time Status Last Admin Acetaminophen/ Hydrocodone Bitart ([place] 10/325MG Tab) 1 tab ONCE ONCE PO 01/26/25 22:30 01/26/25 22:31 DC 01/26/25 22:40 Dexamethasone Sodium Phosphate (Decadron Injection) 10 mg ONCE ONCE IM 01/26/25 22:30 01/26/25 22:31 DC 01/26/25 22:42 X-Ray, Labs, Meds, VS Comment PATIENT GIVEN NORCO 10 MG AND AND DECADRON 10 MG IM. SCRIPT MEDROL DOSEPAK AND MUSCLE RELAXER. REQUESTING DISCHARGE AT THIS TIME ADVISED PATIENT TO FOLLOW UP WITH HER PCP IN 2 DAYS OR WITH PAIN MANAGEMENT DISCUSSED. TAKE MEDICATIONS PRESCRIBED SIDE EFFECTS DISCUSSED. ER PRECAUTIONS FOR INCREASING PAIN, NUMBNESS, WEAKNESS, LOSS OF BOWEL OR BLADDER CONTROL, SADDLE ANESTHESIA, FOOT DROP OR ANY CONCERNING SYMPTOMS. PATIENT INDICATES UNDERSTANDING AND AGREES WITH DISCHARGE PLAN OF CARE Time of 1ST Reevaluation: 22:23 Reevaluation 1ST: Unchanged Patient Education/Counseling: Diagnosis, Treatment, Prognosis, Need For Follow Up Family Education/Counseling: Prognosis, Need For Follow Up Departure 1 Departure Time of Disposition: 22:35 Impression: Primary Impression: Lumbar sprain Qualified Codes: S33.5XXA - Sprain of ligaments of lumbar spine, initial encounter Additional Impression: Musculoskeletal pain Disposition: 01 HOME / SELF CARE / HOMELESS Condition: Stable e-Prescriptions Tizanidine Hydrochloride (Tizanidine Hcl) 4 Mg Tab 4 MG PO BID for 7 Days, #14 TAB Prov: JAILENE GAYTAN 01/26/25 Methylprednisolone (Medrol Dosepak) 4 Mg Chris 4 MG PO UD for 6 Days, #21 TAB UAD Prov: JAILENE GAYTAN 01/26/25 Discharged With: Self Critical Care Note Critical Care Time?: No Stability Stability form required: No JAILENE GAYTAN Jan 26, 2025 22:23
[2025-01-26] MEDS ORDERED: TIZA-142 PO (22:34)
[2025-01-26] MEDS ORDERED: METH4PAK PO (22:34)
[2025-01-26] MEDS: KETOROLAC TROMETH 60MG/2ML VIAL IM ONE (22:38)
[2025-01-26] MEDS: HYDROcodone-ACET 10/325MG TAB PO ONE (22:40)
[2025-01-26] MEDS: DexAMETHasone SOD PHOS 10MG/1ML VIAL INJ IM ONE (22:42)
[2025-01-26 23:11] VITALS: BP 146/93; RESP 67
== END 2025-01-26 23:13 | disposition home or self-care (01) ==
LOC: ER 20:25
DX: S33.5XXA Sprain of ligaments of lumbar spine, initial encounter (principal); F41.9 Anxiety disorder, unspecified; F32.A Depression, unspecified; I11.0 Hypertensive heart disease with heart failure; I50.9 Heart failure, unspecified; Z79.02 Long term (current) use of antithrombotics/antiplatelets; Z79.82 Long term (current) use of aspirin; Z79.899 Other long term (current) drug therapy; Z90.710 Acquired absence of both cervix and uterus; Z98.51 Tubal ligation status; X58.XXXA Exposure to other specified factors, initial encounter; Y93.89 Activity, other specified; Y92.89 Other specified places as the place of occurrence of the external cause; Y99.8 Other external cause status
CPT/HCPCS: 96372; 99283; J1100